=== PATIENT | male | born 1970 | race Caucasian/White ===

== ENCOUNTER 2017-06-29 15:47 | Inpatient (IN) | payer MEDICAID, OTHER ==
[~2017-06-29] VITALS: Ht 175.3 cm; Wt 84.0 kg
[~2017-06-29 15:47] MED LIST: IOHEXOL-350 100 ML BOTTLE ONE; SODIUM CHLORIDE 0.9% 10ML VIAL ONE
[2017-06-29] MEDS ORDERED: NITROGLYCERIN 0.4MG TABLET SL SL PRN (16:15)
[2017-06-29 16:36] LABS: BASOPHILS % 1.2 % (0.0-2.0); HEMOGLOBIN. 12.7 g/dL (14.0-18.0); LYMPHOCYTES % 47.2 % (20.0-50.0); MEAN CORPUSCULAR HEMOGLOBIN 33.1 pg (28.0-32.0); MEAN CORPUSCULAR VOLUME 96.1 fL (80.0-94.0); MEAN PLATELET VOLUME 7.6 fl (7.4-10.4); MONOCYTES % 4.9 % (2.0-8.0); NEUTROPHILS % 42.7 % (40.0-76.0); PLATELET 306 x1000/uL (130-400); RED BLOOD CELL COUNT 3.85 mill/uL (4.7-6.1)
[2017-06-29 16:41] LABS: PROTHROMBIN TIME 10.7 sec (9.4-11.6)
[2017-06-29 16:46] LABS: CARBON DIOXIDE 22 mEq/L (21-32); CHLORIDE 114 mEq/L (98-107)
[2017-06-29 16:48] LABS: TROPONIN I 0.11 ng/mL (0.00-0.04)
[2017-06-29] MEDS ORDERED: FUROSEMIDE 40MG/4ML VIAL IVP ONE (18:30)
[2017-06-29] MEDS ORDERED: ASPIRIN 325MG TABLET PO ONE (18:30)
[2017-06-29] MEDS ORDERED: ACETAMINOPHEN 650MG SUPP PR PRN (19:00)
[2017-06-29] MEDS ORDERED: FUROSEMIDE 40MG/4ML VIAL IV SCH (19:00)
[2017-06-29] MEDS ORDERED: ACETAMINOPHEN 650MG/20.3ML UDC GT PRN (19:00)
[2017-06-29] MEDS ORDERED: DOCUSATE SODIUM 100MG CAPSULE PO PRN (19:00)
[2017-06-29] MEDS ORDERED: HYDROCODONE/ACETAMINOPHEN 5/325MG TABLET PO PRN (19:00)
[2017-06-29] MEDS ORDERED: ACETAMINOPHEN 325MG TABLET PO PRN (19:00)
[2017-06-29] MEDS ORDERED: GUAIFENESIN 200MG/10ML SUGAR FREE UDC PO PRN (19:00)
[2017-06-29] MEDS ORDERED: DIPHENHYDRAMINE 50MG/ML VIAL IV PRN (19:00)
[2017-06-29] MEDS ORDERED: ONDANSETRON HCL 4MG/2ML VIAL IV PRN (19:00)
[2017-06-29] MEDS ORDERED: IPRATROPIUM/ALBUTEROL 0.5-3(2.5)MG/3ML NEB INH PRN (19:00)
[2017-06-29] MEDS ORDERED: CLONIDINE 0.1MG TABLET PO PRN (19:00)
[2017-06-29] MEDS ORDERED: MAGNESIUM/ALUMINUM HYDROXIDE/SIMETHICONE 30ML UDC PO PRN (19:00)
[2017-06-29] MEDS ORDERED: NA PHOS,M-B/NA PHOS,DI-BA ENEMA 118ML PR PRN (19:15)
[2017-06-29 20:00] VITALS: BP 115/76
[2017-06-29] MEDS ORDERED: ATOR40TA70 PO (21:09)
[2017-06-29] MEDS ORDERED: CARV3.1242 PO (21:10)
[2017-06-29] MEDS ORDERED: ENOXAPARIN 40MG/0.4ML SYR SUBCUT SCH (21:40)
[2017-06-29] MEDS ORDERED: SODIUM CHLORIDE 0.9% INJ 3ML FLUSH IVF SCH (22:00)
== END 2017-06-29 20:50 | disposition left against medical advice (07) | DRG 194 ==
LOC: ER 15:59 → 5WST 18:41 → EDBEDREQ 18:44 → ENRESERV 18:50
PROVIDERS: ADMIT Family Medicine; ATTEND Family Medicine
DX: I50.31 Acute diastolic (congestive) heart failure (principal); I10 Essential (primary) hypertension; R07.9 Chest pain, unspecified; I25.10 Atherosclerotic heart disease of native coronary artery without angina pectoris; E78.5 Hyperlipidemia, unspecified; Z53.21 Procedure and treatment not carried out due to patient leaving prior to being seen by health care provider; Z79.899 Other long term (current) drug therapy
CPT/HCPCS: 36415; 71010; 71275; 80053; 80061; 83036; 83880; 84443; 84484; 85025; 85610; 93005; 96374; 99291; A4216; J1940; Q9967

== ENCOUNTER 2017-08-21 13:16 | Emergency (ER) | payer MEDICAID, OTHER ==
[~2017-08-21] VITALS: Ht 177.8 cm; Wt 68.0 kg
[~2017-08-21 13:16] MED LIST changes: +ATOR40TA70 PO; +CARV3.1242 PO; -IOHEXOL-350 100 ML BOTTLE ONE; -SODIUM CHLORIDE 0.9% 10ML VIAL ONE
[2017-08-21 13:46] VITALS: BP 103/62
== END 2017-08-21 20:30 | disposition left against medical advice (07) ==
LOC: ER 13:57
DX: R06.02 Shortness of breath (principal); Z53.21 Procedure and treatment not carried out due to patient leaving prior to being seen by health care provider

== ENCOUNTER 2017-08-22 18:09 | Emergency (ER) | payer MEDICAID ==
[~2017-08-22] VITALS: Ht 172.7 cm; Wt 70.0 kg
[2017-08-22 19:31] LABS: BASOPHILS % 2.4 % (0.0-2.0); EOSINOPHILS % 8.2 % (0.0-5.0); HEMOGLOBIN. 13.7 g/dL (14.0-18.0); LYMPHOCYTES % 45.7 % (20.0-50.0); MEAN CORPUSCULAR VOLUME 96.4 fL (80.0-94.0); MEAN PLATELET VOLUME 7.9 fl (7.4-10.4); MONOCYTES % 7.2 % (2.0-8.0); NEUTROPHILS % 36.5 % (40.0-76.0); PLATELET 223 x1000/uL (130-400); RED BLOOD CELL COUNT 4.15 mill/uL (4.7-6.1); RED CELL DISTRIBUTION WIDTH 14.8 % (11.6-14.6)
[2017-08-22 19:38] LABS: CHLORIDE 107 mEq/L (98-107)
[2017-08-22 19:40] LABS: INR 1.1
[2017-08-22 19:44] LABS: AMMONIA 31 uMol/L (<32); CARBON DIOXIDE 24 mEq/L (21-32); ETHANOL BLOOD 278 mg/dL
[2017-08-22 19:47] LABS: CREATINE KINASE 202 IU/L (39-308); TROPONIN I < 0.02 ng/mL (0.00-0.04)
[2017-08-22] MEDS ORDERED: SODIUM CHLORIDE 0.9% 1,000 ML IV ONE (20:04)
[2017-08-22] MEDS ORDERED: SODIUM CHLORIDE 0.9% 1,000 ML IV NR (21:10)
[2017-08-22 23:22] LABS: CLARITY URINE CLEAR (CLEAR); COLOR URINE YELLOW (YELLOW); GLUCOSE URINE NEGATIVE (NEGATIVE); KETONES URINE NEGATIVE (NEGATIVE); LEUKOCYTE ESTERASE URINE TRACE (NEGATIVE); NITRITE URINE NEGATIVE (NEGATIVE); OCCULT BLOOD URINE NEGATIVE (NEGATIVE); PROTEIN URINE NEGATIVE (NEGATIVE); SPECIFIC GRAVITY URINE 1.016 (1.005-1.030)
[2017-08-22 23:34] LABS: *AMPHETAMINES SCREEN URINE NEGATIVE (NEGATIVE); *BARBITURATES SCREEN URINE NEGATIVE (NEGATIVE); *BENZODIAZEPINES SCREEN URINE NEGATIVE (NEGATIVE); *COCAINE SCREEN URINE NEGATIVE (NEGATIVE); CANNABINOID URINE SCREEN NEGATIVE (NEGATIVE); METHADONE URINE SCREEN NEGATIVE (NEGATIVE); OPIATES URINE SCREEN NEGATIVE (NEGATIVE); PHENCYCLIDINE URINE SCREEN NEGATIVE (NEGATIVE)
[2017-08-23] MEDS ORDERED: SODIUM CHLORIDE 0.9% 1,000 ML IV ONE (00:54)
[2017-08-23] MEDS ORDERED: LORAZEPAM 2MG/ML CPJ IV ONE (04:15)
[2017-08-23 17:19] VITALS: BP 130/78
== END 2017-08-23 18:22 | disposition home or self-care (01) ==
LOC: ER 18:49
DX: T45.522A Poisoning by antithrombotic drugs, intentional self-harm, initial encounter (principal); F10.129 Alcohol abuse with intoxication, unspecified; G93.49 Other encephalopathy; I10 Essential (primary) hypertension; F32.9 Major depressive disorder, single episode, unspecified; Y90.8 Blood alcohol level of 240 mg/100 ml or more; Y92.89 Other specified places as the place of occurrence of the external cause
CPT/HCPCS: 36415; 70450; 71010; 80053; 80305; 80307; 80329; 81001; 82140; 82550; 82962; 83605; 83880; 83930; 84484; 85025; 85610; 86850; 86900; 86901; 93005; 96361; 96374; 99285; G0482; J2060; J7030; Z7610

== ENCOUNTER 2017-11-01 04:18 | Emergency (ER) | payer MEDICAID ==
[~2017-11-01] VITALS: Ht 172.7 cm; Wt 84.0 kg
[2017-11-01 06:09] LABS: BASOPHILS % 2.4 % (0.0-2.0); EOSINOPHILS % 5.6 % (0.0-5.0); HEMATOCRIT. 40.3 % (42.0-52.0); HEMOGLOBIN. 13.4 g/dL (14.0-18.0); LYMPHOCYTES % 38.3 % (20.0-50.0); MEAN CORPUSCULAR HEMOGLOBIN 32.4 pg (28.0-32.0); MEAN CORPUSCULAR VOLUME 97.2 fL (80.0-94.0); MEAN PLATELET VOLUME 7.8 fl (7.4-10.4); MONOCYTES % 6.1 % (2.0-8.0); NEUTROPHILS % 47.6 % (40.0-76.0); PLATELET 352 x1000/uL (130-400); RED BLOOD CELL COUNT 4.14 mill/uL (4.7-6.1); RED CELL DISTRIBUTION WIDTH 15.2 % (11.6-14.6)
[2017-11-01 06:19] LABS: CARBON DIOXIDE 23 mEq/L (21-32); CHLORIDE 111 mEq/L (98-107); TROPONIN I < 0.02 ng/mL (0.00-0.04)
[2017-11-01 06:39] VITALS: BP 121/79
[2017-11-01 06:39] LABS: ETHANOL BLOOD 310 mg/dL
== END 2017-11-01 06:44 | disposition left against medical advice (07) ==
LOC: ER 04:18
DX: R07.89 Other chest pain (principal); R42 Dizziness and giddiness; R06.02 Shortness of breath; I10 Essential (primary) hypertension; F32.9 Major depressive disorder, single episode, unspecified; F10.20 Alcohol dependence, uncomplicated
CPT/HCPCS: 36415; 71010; 80053; 83880; 84484; 85025; 93005; 99285; G0482; Z7610

== ENCOUNTER 2018-03-26 22:59 | Emergency (ER) | payer MEDICAID ==
[~2018-03-26] VITALS: Ht 177.8 cm; Wt 75.0 kg
[2018-03-27 05:38] LABS: BASOPHILS % 1.3 % (0.0-2.0); EOSINOPHILS % 3.8 % (0.0-5.0); HEMATOCRIT. 36.9 % (42.0-52.0); HEMOGLOBIN. 12.8 g/dL (14.0-18.0); LYMPHOCYTES % 45.1 % (20.0-50.0); MEAN CORPUSCULAR HEMOGLOBIN 33.3 pg (28.0-32.0); MEAN PLATELET VOLUME 8.6 fl (7.4-10.4); MONOCYTES % 6.8 % (2.0-8.0); PLATELET 162 x1000/uL (130-400); RED BLOOD CELL COUNT 3.85 mill/uL (4.7-6.1); RED CELL DISTRIBUTION WIDTH 15.3 % (11.6-14.6)
[2018-03-27 05:44] LABS: CLARITY URINE CLEAR (CLEAR); COLOR URINE YELLOW (YELLOW); KETONES URINE NEGATIVE (NEGATIVE); LEUKOCYTE ESTERASE URINE NEGATIVE (NEGATIVE); NITRITE URINE NEGATIVE (NEGATIVE); OCCULT BLOOD URINE NEGATIVE (NEGATIVE); PROTEIN URINE 1+ (NEGATIVE); SPECIFIC GRAVITY URINE 1.018 (1.005-1.030)
[2018-03-27 05:44] LABS: CHLORIDE 112 mEq/L (98-107)
[2018-03-27 05:50] LABS: ETHANOL BLOOD 241 mg/dL
[2018-03-27 06:06] LABS: CANNABINOID URINE SCREEN NEGATIVE (NEGATIVE)
[2018-03-27 06:07] LABS: *AMPHETAMINES SCREEN URINE NEGATIVE (NEGATIVE); *BARBITURATES SCREEN URINE NEGATIVE (NEGATIVE); *BENZODIAZEPINES SCREEN URINE NEGATIVE (NEGATIVE); *COCAINE SCREEN URINE NEGATIVE (NEGATIVE); METHADONE URINE SCREEN NEGATIVE (NEGATIVE); OPIATES URINE SCREEN NEGATIVE (NEGATIVE); PHENCYCLIDINE URINE SCREEN NEGATIVE (NEGATIVE)
[2018-03-27 08:57] VITALS: BP 108/68
== END 2018-03-27 09:04 | disposition home or self-care (01) ==
LOC: ER 23:07
DX: F10.129 Alcohol abuse with intoxication, unspecified (principal); D64.9 Anemia, unspecified; E88.09 Other disorders of plasma-protein metabolism, not elsewhere classified; H11.003 Unspecified pterygium of eye, bilateral; I10 Essential (primary) hypertension; Y90.8 Blood alcohol level of 240 mg/100 ml or more
CPT/HCPCS: 36415; 80053; 80305; 81003; 85025; 99284; G0482; Z7610

== ENCOUNTER 2018-05-15 16:21 | Emergency (ER) | payer MEDICAID ==
[~2018-05-15] VITALS: Ht 172.7 cm; Wt 80.0 kg
[2018-05-15] MEDS ORDERED: MORPHINE SULFATE 4 MG/ML CPJ (NOT FOR IM USE) IV STA (17:54)
[2018-05-15] MEDS ORDERED: ONDANSETRON HCL 4MG/2ML VIAL IV STA (17:54)
[2018-05-15] MEDS ORDERED: KETOROLAC 30MG/ML VIAL IV STA (17:54)
[2018-05-15] MEDS ORDERED: METHYLPREDNISOLONE SOD SUCC 125 MG/2 ML VIAL IV STA (17:54)
[2018-05-15] MEDS ORDERED: IPRATROPIUM/ALBUTEROL 0.5-3(2.5)MG/3ML NEB HHN ONE (18:00)
[2018-05-15] MEDS ORDERED: LEVOFLOXACIN 750MG PREMIX 150 ML IV ONE (18:00)
[2018-05-15 18:43] LABS: BASOPHILS % 1.7 % (0.0-2.0); EOSINOPHILS % 3.1 % (0.0-5.0); HEMATOCRIT. 39.1 % (42.0-52.0); HEMOGLOBIN. 13.3 g/dL (14.0-18.0); LYMPHOCYTES % 32.8 % (20.0-50.0); MEAN CORPUSCULAR HEMOGLOBIN 32.9 pg (28.0-32.0); MEAN CORPUSCULAR VOLUME 97.1 fL (80.0-94.0); MEAN PLATELET VOLUME 7.7 fl (7.4-10.4); NEUTROPHILS % 58.4 % (40.0-76.0); PLATELET 334 x1000/uL (130-400); RED BLOOD CELL COUNT 4.03 mill/uL (4.7-6.1); RED CELL DISTRIBUTION WIDTH 15.4 % (11.6-14.6)
[2018-05-15 18:46] LABS: CHLORIDE 116 mEq/L (98-107)
[2018-05-15 18:53] LABS: INR 1.1; PARTIAL THROMBOPLASTIN TIME 25.9 sec (23.4-31.0); PROTHROMBIN TIME 11.2 sec (9.4-11.6)
[2018-05-15 18:55] LABS: CREATINE KINASE 322 IU/L (39-308)
[2018-05-15 19:11] LABS: ETHANOL BLOOD 322 mg/dL
[2018-05-15 19:44] LABS: METHADONE URINE SCREEN NEGATIVE (NEGATIVE); OPIATES URINE SCREEN NEGATIVE (NEGATIVE)
[2018-05-15 19:45] LABS: *AMPHETAMINES SCREEN URINE NEGATIVE (NEGATIVE); *BARBITURATES SCREEN URINE NEGATIVE (NEGATIVE); *BENZODIAZEPINES SCREEN URINE NEGATIVE (NEGATIVE); *COCAINE SCREEN URINE NEGATIVE (NEGATIVE); CANNABINOID URINE SCREEN NEGATIVE (NEGATIVE); PHENCYCLIDINE URINE SCREEN NEGATIVE (NEGATIVE)
[2018-05-15 20:52] VITALS: BP 124/75
== END 2018-05-15 20:56 | disposition home or self-care (01) ==
LOC: ER 16:21
DX: T51.0X1A Toxic effect of ethanol, accidental (unintentional), initial encounter (principal); R05 Cough; I51.7 Cardiomegaly; F17.200 Nicotine dependence, unspecified, uncomplicated; F43.10 Post-traumatic stress disorder, unspecified; F10.20 Alcohol dependence, uncomplicated; Y90.8 Blood alcohol level of 240 mg/100 ml or more; Y92.89 Other specified places as the place of occurrence of the external cause
CPT/HCPCS: 36415; 71045; 80053; 80305; 82550; 83605; 83690; 83880; 84443; 84484; 85025; 85610; 85730; 87040; 93005; 94640; 96365; 96366; 96375; 99285; G0482; J1885; J1956; J2270; J2405; J2930; J7620

== ENCOUNTER 2018-09-18 10:59 | Emergency (ER) | payer MEDICAID ==
[~2018-09-18] VITALS: Ht 175.3 cm; Wt 76.0 kg
[~2018-09-18 10:59] MED LIST changes: +ASPI-1159 PO; -CARV3.1242 PO
[2018-09-18] MEDS ORDERED: SODIUM CHLORIDE 0.9% 1,000 ML IV ONE (11:38)
[2018-09-18] MEDS ORDERED: ONDANSETRON HCL 4MG/2ML INJ IV STA (11:38)
[2018-09-18] MEDS ORDERED: KETOROLAC 30MG/ML VIAL IV STA (11:38)
[2018-09-18 12:22] LABS: BASOPHILS % 0.7 % (0.0-2.0); EOSINOPHILS % 1.1 % (0.0-5.0); HEMATOCRIT. 41.4 % (42.0-52.0); HEMOGLOBIN. 14.4 g/dL (14.0-18.0); LYMPHOCYTES % 17.3 % (20.0-50.0); MEAN CORPUSCULAR HEMOGLOBIN 32.4 pg (28.0-32.0); MEAN CORPUSCULAR VOLUME 93.3 fL (80.0-94.0); MEAN PLATELET VOLUME 7.8 fl (7.4-10.4); MONOCYTES % 4.2 % (2.0-8.0); NEUTROPHILS % 76.7 % (40.0-76.0); PLATELET 251 x1000/uL (130-400); RED BLOOD CELL COUNT 4.44 mill/uL (4.7-6.1); RED CELL DISTRIBUTION WIDTH 14.3 % (11.6-14.6)
[2018-09-18 12:28] LABS: PROTHROMBIN TIME 10.3 sec (9.1-11.1)
[2018-09-18 12:30] LABS: CHLORIDE 107 mEq/L (98-107)
[2018-09-18 12:37] LABS: ETHANOL BLOOD 300 mg/dL
[2018-09-18 14:30] VITALS: BP 111/77
== END 2018-09-18 16:52 | disposition home or self-care (01) ==
LOC: ER 10:59
DX: F10.229 Alcohol dependence with intoxication, unspecified (principal); R10.9 Unspecified abdominal pain; R06.00 Dyspnea, unspecified; F32.9 Major depressive disorder, single episode, unspecified; R79.89 Other specified abnormal findings of blood chemistry; R06.02 Shortness of breath; I10 Essential (primary) hypertension; Y90.8 Blood alcohol level of 240 mg/100 ml or more; Z79.82 Long term (current) use of aspirin
CPT/HCPCS: 36415; 71045; 80053; 83690; 83880; 84443; 84484; 85025; 85610; 93005; 96374; 96375; 99285; G0482; J1885; J2405; J7030

== ENCOUNTER 2019-03-27 18:08 | Emergency (ER) | payer MEDICAID ==
[~2019-03-27] VITALS: Ht 170.2 cm; Wt 75.0 kg
[2019-03-27] MEDS ORDERED: SODIUM CHLORIDE 0.9% 1,000 ML IV ONE (19:21)
[2019-03-27] MEDS ORDERED: KETOROLAC 30MG/ML VIAL IV STA (19:21)
[2019-03-27 19:40] LABS: BASOPHILS % 0.5 % (0.0-2.0); EOSINOPHILS % 5.4 % (0.0-5.0); HEMATOCRIT. 37.4 % (42.0-52.0); HEMOGLOBIN. 12.7 g/dL (14.0-18.0); LYMPHOCYTES % 30.6 % (20.0-50.0); MEAN CORPUSCULAR VOLUME 94.3 fL (80.0-94.0); MEAN PLATELET VOLUME 7.4 fl (7.4-10.4); MONOCYTES % 4.8 % (2.0-8.0); NEUTROPHILS % 58.7 % (40.0-76.0); PLATELET 157 x1000/uL (130-400); RED BLOOD CELL COUNT 3.97 mill/uL (4.7-6.1); RED CELL DISTRIBUTION WIDTH 15.4 % (11.6-14.6)
[2019-03-27 19:46] LABS: CHLORIDE 112 mEq/L (98-107)
[2019-03-27 19:51] LABS: ETHANOL BLOOD 292 mg/dL
[2019-03-27 20:53] LABS: CLARITY URINE CLEAR (CLEAR); COLOR URINE YELLOW (YELLOW); KETONES URINE TRACE (NEGATIVE); LEUKOCYTE ESTERASE URINE NEGATIVE (NEGATIVE); NITRITE URINE NEGATIVE (NEGATIVE); OCCULT BLOOD URINE NEGATIVE (NEGATIVE); PH URINE 5.5 (4.5-8.0); PROTEIN URINE TRACE (NEGATIVE); SPECIFIC GRAVITY URINE 1.021 (1.005-1.030)
[2019-03-27 21:05] LABS: *AMPHETAMINES SCREEN URINE NEGATIVE (NEGATIVE); *BARBITURATES SCREEN URINE NEGATIVE (NEGATIVE); *BENZODIAZEPINES SCREEN URINE PRESUMTIVE POSITIVE (NEGATIVE); *COCAINE SCREEN URINE NEGATIVE (NEGATIVE); METHADONE URINE SCREEN NEGATIVE (NEGATIVE)
[2019-03-27 21:06] LABS: CANNABINOID URINE SCREEN NEGATIVE (NEGATIVE); OPIATES URINE SCREEN NEGATIVE (NEGATIVE); PHENCYCLIDINE URINE SCREEN NEGATIVE (NEGATIVE)
[2019-03-27 22:14] VITALS: BP 113/67
== END 2019-03-27 22:38 | disposition home or self-care (01) ==
LOC: ER 18:08
DX: R07.89 Other chest pain (principal); F10.129 Alcohol abuse with intoxication, unspecified; Y90.8 Blood alcohol level of 240 mg/100 ml or more; Z59.0 Homelessness
CPT/HCPCS: 36415; 71045; 80053; 80305; 80320; 81003; 83690; 84484; 85025; 93005; 96374; 99284; J1885; J7030; Z7610; G0480

== ENCOUNTER 2019-04-11 17:35 | Emergency (ER) | payer MEDICAID ==
[~2019-04-11] VITALS: Ht 172.7 cm; Wt 80.0 kg
[2019-04-11 20:01] LABS: BASOPHILS % 2.4 % (0.0-2.0); EOSINOPHILS % 0.9 % (0.0-5.0); HEMATOCRIT. 36.2 % (42.0-52.0); HEMOGLOBIN. 12.6 g/dL (14.0-18.0); LYMPHOCYTES % 24.1 % (20.0-50.0); MEAN CORPUSCULAR VOLUME 95.2 fL (80.0-94.0); MEAN PLATELET VOLUME 7.6 fl (7.4-10.4); MONOCYTES % 5.8 % (2.0-8.0); NEUTROPHILS % 66.8 % (40.0-76.0); PLATELET 268 x1000/uL (130-400); RED CELL DISTRIBUTION WIDTH 16.2 % (11.6-14.6)
[2019-04-11 20:06] LABS: CHLORIDE 115 mEq/L (98-107)
[2019-04-11 20:40] LABS: ETHANOL BLOOD 324 mg/dL
[2019-04-11 21:15] LABS: CLARITY URINE CLEAR (CLEAR); COLOR URINE YELLOW (YELLOW); KETONES URINE NEGATIVE (NEGATIVE); LEUKOCYTE ESTERASE URINE NEGATIVE (NEGATIVE); NITRITE URINE NEGATIVE (NEGATIVE); OCCULT BLOOD URINE TRACE (NEGATIVE); PH URINE 5.5 (4.5-8.0); PROTEIN URINE 2+ (NEGATIVE); SPECIFIC GRAVITY URINE 1.019 (1.005-1.030); UROBILINOGEN URINE 0.2 E.U./dL (0.2-1.0)
[2019-04-11 21:31] LABS: *AMPHETAMINES SCREEN URINE NEGATIVE (NEGATIVE); *BENZODIAZEPINES SCREEN URINE PRESUMTIVE POSITIVE (NEGATIVE); *COCAINE SCREEN URINE NEGATIVE (NEGATIVE); METHADONE URINE SCREEN NEGATIVE (NEGATIVE)
[2019-04-11 21:32] LABS: *BARBITURATES SCREEN URINE NEGATIVE (NEGATIVE); CANNABINOID URINE SCREEN NEGATIVE (NEGATIVE); OPIATES URINE SCREEN NEGATIVE (NEGATIVE); PHENCYCLIDINE URINE SCREEN NEGATIVE (NEGATIVE)
[2019-04-12 06:50] VITALS: BP 111/68
[2019-04-12] MEDS ORDERED: ACETAMINOPHEN 325MG TABLET PO ONE (10:30)
== END 2019-04-12 11:30 | disposition home or self-care (01) ==
LOC: ER 17:35
DX: T51.0X1A Toxic effect of ethanol, accidental (unintentional), initial encounter (principal); G92 Toxic encephalopathy; F10.229 Alcohol dependence with intoxication, unspecified; Y90.8 Blood alcohol level of 240 mg/100 ml or more; F32.9 Major depressive disorder, single episode, unspecified; M79.642 Pain in left hand; M79.641 Pain in right hand; Y92.480 Sidewalk as the place of occurrence of the external cause; Z59.0 Homelessness
CPT/HCPCS: 36415; 70450; 71045; 73130; 80053; 80305; 80307; 80320; 80329; 81003; 82140; 82962; 83690; 85025; 93005; 99284; Z7610; G0480

== ENCOUNTER 2019-07-20 12:13 | Emergency (ER) | payer MEDICAID ==
[~2019-07-20] VITALS: Ht 177.8 cm; Wt 73.0 kg
[~2019-07-20 12:13] MED LIST changes: -ASPI-1159 PO; +ASPI-1393 PO
[2019-07-20] MEDS ORDERED: SODIUM CHLORIDE 0.9% 1,000 ML IV ONE (13:12)
[2019-07-20] MEDS ORDERED: FAMOTIDINE 20MG/2ML VIAL IV ONE (13:15)
[2019-07-20] MEDS ORDERED: ASPIRIN 325MG TABLET PO ONE (13:15)
[2019-07-20 14:14] LABS: BASOPHILS % 1.2 % (0.0-2.0); HEMATOCRIT. 34.2 % (42.0-52.0); HEMOGLOBIN. 11.7 g/dL (14.0-18.0); LYMPHOCYTES % 23.9 % (20.0-50.0); MEAN CORPUSCULAR HEMOGLOBIN 32.8 pg (28.0-32.0); MEAN CORPUSCULAR VOLUME 96.2 fL (80.0-94.0); MONOCYTES % 4.5 % (2.0-8.0); NEUTROPHILS % 67.4 % (40.0-76.0); PLATELET 174 x1000/uL (130-400); RED BLOOD CELL COUNT 3.55 mill/uL (4.7-6.1); RED CELL DISTRIBUTION WIDTH 15.6 % (11.6-14.6)
[2019-07-20 14:20] LABS: CHLORIDE 115 mEq/L (98-107)
[2019-07-20 14:23] LABS: D-DIMER 1.5 mg/L FEU (<0.50); INR 1.1
[2019-07-20 14:27] LABS: ETHANOL BLOOD 273 mg/dL
[2019-07-20 14:49] LABS: CLARITY URINE CLEAR (CLEAR); COLOR URINE YELLOW (YELLOW); KETONES URINE NEGATIVE (NEGATIVE); LEUKOCYTE ESTERASE URINE NEGATIVE (NEGATIVE); NITRITE URINE NEGATIVE (NEGATIVE); OCCULT BLOOD URINE NEGATIVE (NEGATIVE); PH URINE 5.5 (4.5-8.0); PROTEIN URINE 2+ (NEGATIVE); SPECIFIC GRAVITY URINE 1.017 (1.005-1.030)
[2019-07-20 17:30] VITALS: BP 130/72
[2019-07-20] MEDS ORDERED: DIPHENHYDRAMINE 50MG/ML VIAL IV PRN (18:30)
[2019-07-20] MEDS ORDERED: GUAIFENESIN 200MG/10ML SUGAR FREE UDC PO PRN (18:30)
[2019-07-20] MEDS ORDERED: HYDROCODONE/ACETAMINOPHEN 5/325MG TABLET PO PRN (18:30)
[2019-07-20] MEDS ORDERED: ACETAMINOPHEN 325MG TABLET PO PRN (18:30)
[2019-07-20] MEDS ORDERED: ONDANSETRON HCL 4MG/2ML INJ IV PRN (18:30)
[2019-07-20] MEDS ORDERED: LORAZEPAM 2MG/ML CPJ IV PRN (18:30)
[2019-07-20] MEDS ORDERED: FUROSEMIDE 40MG/4ML VIAL IV SCH (18:30)
[2019-07-20] MEDS ORDERED: IPRATROPIUM/ALBUTEROL 0.5-3(2.5)MG/3ML NEB HHN PRN (18:30)
[2019-07-20] MEDS ORDERED: ENOXAPARIN 40MG/0.4ML SYR SUBCUT SCH (18:30)
[2019-07-20] MEDS ORDERED: DOCUSATE SODIUM 100MG CAPSULE PO PRN (18:30)
[2019-07-20 18:38] LABS: PHOSPHORUS 2.8 mg/dL (2.5-4.9)
[2019-07-20] MEDS ORDERED: IOHEXOL-350 100 ML BOTTLE ONE (19:37)
[2019-07-20] MEDS ORDERED: CHLORDIAZEPOXIDE 25MG CAPSULE PO SCH (22:00)
== END 2019-07-20 19:03 | disposition left against medical advice (07) ==
LOC: ER 12:31 → EDBEDREQ 17:03 → EDBEDREQTM 17:03 → ER 19:03 → CANRESERV 19:38 → ENRESERV 19:38 → CANBEDREQ 21:29
DX: R07.89 Other chest pain (principal); I50.9 Heart failure, unspecified; I44.7 Left bundle-branch block, unspecified; F10.129 Alcohol abuse with intoxication, unspecified; R06.02 Shortness of breath; F31.9 Bipolar disorder, unspecified; E78.00 Pure hypercholesterolemia, unspecified; Z79.899 Other long term (current) drug therapy; Y90.8 Blood alcohol level of 240 mg/100 ml or more
CPT/HCPCS: 36415; 71045; 71275; 80053; 80320; 81003; 83605; 83690; 83735; 83880; 84100; 84484; 85025; 85379; 85610; 93005; 96361; 96374; 99284; J3490; J7030; Q9967; G0480

== ENCOUNTER 2019-09-14 12:58 | Emergency (ER) | payer MEDICAID ==
[~2019-09-14] VITALS: Ht 172.7 cm; Wt 78.0 kg
[2019-09-14 13:02] VITALS: BP 104/69
== END 2019-09-14 14:41 | disposition left against medical advice (07) ==
LOC: ER 12:58
DX: F41.9 Anxiety disorder, unspecified (principal); Z53.21 Procedure and treatment not carried out due to patient leaving prior to being seen by health care provider

== ENCOUNTER 2019-09-19 05:19 | Inpatient (IN) | payer MEDICAID ==
[~2019-09-19] VITALS: Ht 170.2 cm; Wt 80.7 kg
[2019-09-19] MEDS ORDERED: ONDANSETRON HCL 4MG/2ML INJ IV STA (06:01)
[2019-09-19] MEDS ORDERED: SODIUM CHLORIDE 0.9% 1,000 ML IV ONE (06:01)
[2019-09-19 06:20] LABS: CHLORIDE 110 mEq/L (98-107)
[2019-09-19 06:21] LABS: BASOPHILS % 2.2 % (0.0-2.0); EOSINOPHILS % 1.6 % (0.0-5.0); HEMATOCRIT. 39.5 % (42.0-52.0); HEMOGLOBIN. 13.3 g/dL (14.0-18.0); MEAN CORPUSCULAR HEMOGLOBIN 32.7 pg (28.0-32.0); MEAN CORPUSCULAR VOLUME 97.3 fL (80.0-94.0); MEAN PLATELET VOLUME 8.7 fl (7.4-10.4); MONOCYTES % 4.6 % (2.0-8.0); NEUTROPHILS % 69.6 % (40.0-76.0); PLATELET 177 x1000/uL (130-400); RED BLOOD CELL COUNT 4.06 mill/uL (4.7-6.1); RED CELL DISTRIBUTION WIDTH 15.6 % (11.6-14.6)
[2019-09-19 06:22] LABS: INR 1.3; PROTHROMBIN TIME 12.9 sec (9.6-11.0)
[2019-09-19] MEDS ORDERED: MORPHINE SULFATE 4 MG/ML CPJ (NOT FOR IM USE) IV ONE ×2 (06:45→08:45)
[2019-09-19 16:00] VITALS: BP 134/87
[2019-09-19 16:32] VITALS: BP 134/87
[2019-09-19] MEDS ORDERED: HYDROCODONE/ACETAMINOPHEN 5/325MG TABLET PO PRN (17:00)
[2019-09-19] MEDS ORDERED: IPRATROPIUM/ALBUTEROL 0.5-3(2.5)MG/3ML NEB HHN PRN (17:00)
[2019-09-19] MEDS ORDERED: ACETAMINOPHEN 325MG TABLET PO PRN (17:00)
[2019-09-19] MEDS ORDERED: CLONIDINE 0.1MG TABLET PO PRN (17:00)
[2019-09-19] MEDS ORDERED: LORAZEPAM 0.5MG TABLET PO PRN (17:00)
[2019-09-19] MEDS ORDERED: ONDANSETRON HCL 4MG/2ML INJ IV PRN (17:00)
[2019-09-19] MEDS ORDERED: DOCUSATE SODIUM 100MG CAPSULE PO PRN (17:00)
[2019-09-19] MEDS: MORPHINE SULFATE 2 MG/ML CPJ (NOT FOR IM USE) IV PRN (17:22)
[2019-09-19] MEDS: THIAMINE HCL 100MG TABLET PO SCH (17:23)
[2019-09-19] MEDS: MULTIVITAMINS,THER W-MINERALS TABLET PO SCH (17:23)
[2019-09-19] MEDS: SUCRALFATE 1G TABLET PO SCH ×2 (17:23→21:22)
[2019-09-19] MEDS: FOLIC ACID 1MG TABLET PO SCH (17:23)
[2019-09-19] MEDS: PANTOPRAZOLE SODIUM 40 MG/VIAL IV SCH (17:23)
[2019-09-19 20:00] VITALS: BP 132/81
[2019-09-19] MEDS: CHLORDIAZEPOXIDE 25MG CAPSULE PO SCH (21:23)
[2019-09-20] VITALS: BP 128/86
[2019-09-20] MEDS: MORPHINE SULFATE 2 MG/ML CPJ (NOT FOR IM USE) IV PRN (00:44)
[2019-09-20 04:00] VITALS: BP 117/73
[2019-09-20] MEDS: SUCRALFATE 1G TABLET PO SCH ×4 (06:16→21:09)
[2019-09-20] MEDS: CHLORDIAZEPOXIDE 25MG CAPSULE PO SCH ×3 (06:16→21:09)
[2019-09-20 07:36] LABS: EOSINOPHILS % 2.7 % (0.0-5.0); HEMATOCRIT. 38.1 % (42.0-52.0); HEMOGLOBIN. 12.7 g/dL (14.0-18.0); LYMPHOCYTES % 19.5 % (20.0-50.0); MEAN CORPUSCULAR HEMOGLOBIN 32.9 pg (28.0-32.0); MEAN CORPUSCULAR VOLUME 99.1 fL (80.0-94.0); MEAN PLATELET VOLUME 9.1 fl (7.4-10.4); MONOCYTES % 7.5 % (2.0-8.0); NEUTROPHILS % 69.3 % (40.0-76.0); PLATELET 147 x1000/uL (130-400); RED BLOOD CELL COUNT 3.84 mill/uL (4.7-6.1); RED CELL DISTRIBUTION WIDTH 15.3 % (11.6-14.6)
[2019-09-20 07:44] LABS: CHLORIDE 106 mEq/L (98-107)
[2019-09-20 07:51] LABS: PHOSPHORUS 4.3 mg/dL (2.5-4.9)
[2019-09-20 08:00] VITALS: BP 111/76
[2019-09-20] MEDS: PANTOPRAZOLE SODIUM 40 MG/VIAL IV SCH (08:49)
[2019-09-20] MEDS: THIAMINE HCL 100MG TABLET PO SCH (08:50)
[2019-09-20] MEDS: FOLIC ACID 1MG TABLET PO SCH (08:50)
[2019-09-20] MEDS: MULTIVITAMINS,THER W-MINERALS TABLET PO SCH (08:50)
[2019-09-20] MEDS ORDERED: FUROSEMIDE 40MG/4ML VIAL IVP NR (10:00)
[2019-09-20] MEDS ORDERED: MAGNESIUM 4 G PREMIX 100 ML IV SCH (10:00)
[2019-09-20 10:41] LABS: *AMPHETAMINES SCREEN URINE NEGATIVE (NEGATIVE); *BARBITURATES SCREEN URINE NEGATIVE (NEGATIVE); *BENZODIAZEPINES SCREEN URINE NEGATIVE (NEGATIVE); *COCAINE SCREEN URINE NEGATIVE (NEGATIVE)
[2019-09-20 10:42] LABS: METHADONE URINE SCREEN NEGATIVE (NEGATIVE)
[2019-09-20 10:43] LABS: CANNABINOID URINE SCREEN NEGATIVE (NEGATIVE); PHENCYCLIDINE URINE SCREEN NEGATIVE (NEGATIVE)
[2019-09-20 10:44] LABS: OPIATES URINE SCREEN PRESUMTIVE POSITIVE (NEGATIVE)
[2019-09-20 11:19] LABS: HEPATITIS B SURFACE ANTIGEN NEGATIVE
[2019-09-20] MEDS: CARVEDILOL 3.125 MG TABLET PO SCH ×2 (11:31→21:09)
[2019-09-20 11:48] LABS: HEPATITIS A AB IGM NEGATIVE (NEGATIVE)
[2019-09-20 12:00] VITALS: BP 110/70
[2019-09-20 13:13] LABS: TOTAL IRON BINDING CAPACITY 352 ug/dL (250-450)
[2019-09-20 13:16] LABS: FERRITIN 150 ng/mL (22-322)
[2019-09-20 15:51] LABS: VITAMIN B12 SERUM > 2000.0 pg/mL (211-911)
[2019-09-20 16:00] VITALS: BP 95/57
[2019-09-20] MEDS: FUROSEMIDE 40MG/4ML VIAL IVP SCH (16:45)
[2019-09-20] MEDS: MAGNESIUM OXIDE 400MG TABLET PO SCH (16:45)
[2019-09-20 20:00] VITALS: BP 105/61
[2019-09-21] VITALS: BP 99/59
[2019-09-21 04:00] VITALS: BP 94/53
[2019-09-21] MEDS: CHLORDIAZEPOXIDE 25MG CAPSULE PO SCH ×2 (05:27→13:29)
[2019-09-21 06:29] LABS: BASOPHILS % 0.7 % (0.0-2.0); EOSINOPHILS % 3.2 % (0.0-5.0); HEMOGLOBIN. 12.5 g/dL (14.0-18.0); LYMPHOCYTES % 15.7 % (20.0-50.0); MEAN CORPUSCULAR HEMOGLOBIN 32.8 pg (28.0-32.0); MEAN CORPUSCULAR VOLUME 97.1 fL (80.0-94.0); MONOCYTES % 6.3 % (2.0-8.0); NEUTROPHILS % 74.1 % (40.0-76.0); PLATELET 147 x1000/uL (130-400); RED BLOOD CELL COUNT 3.81 mill/uL (4.7-6.1); RED CELL DISTRIBUTION WIDTH 14.6 % (11.6-14.6)
[2019-09-21] MEDS: SUCRALFATE 1G TABLET PO SCH ×2 (06:31→11:35)
[2019-09-21 07:08] LABS: CHLORIDE 100 mEq/L (98-107)
[2019-09-21 08:00] VITALS: BP 95/56
[2019-09-21 08:07] LABS: HIV SCREEN 4G Non Reactive (Non Reactive)
[2019-09-21] MEDS: CARVEDILOL 3.125 MG TABLET PO SCH ×2 (09:00→10:38)
[2019-09-21] MEDS: FOLIC ACID 1MG TABLET PO SCH (09:04)
[2019-09-21] MEDS: THIAMINE HCL 100MG TABLET PO SCH (09:04)
[2019-09-21] MEDS: FUROSEMIDE 40MG/4ML VIAL IVP SCH (09:04)
[2019-09-21] MEDS: PANTOPRAZOLE SODIUM 40 MG/VIAL IV SCH (09:04)
[2019-09-21] MEDS: MAGNESIUM OXIDE 400MG TABLET PO SCH (09:04)
[2019-09-21] MEDS: MULTIVITAMINS,THER W-MINERALS TABLET PO SCH (09:04)
[2019-09-21] MEDS ORDERED: POTASSIUM CHLORIDE 20MEQ TABLET SR PO SCH (11:30)
== END 2019-09-21 14:21 | disposition left against medical advice (07) | DRG 241 ==
LOC: ER 05:34 → 8WST 14:20 → ENRESERV 14:26
PROVIDERS: ADMIT Internal Medicine; ATTEND Internal Medicine
DX: K29.20 Alcoholic gastritis without bleeding (principal); J96.00 Acute respiratory failure, unspecified whether with hypoxia or hypercapnia; I50.43 Acute on chronic combined systolic (congestive) and diastolic (congestive) heart failure; E43 Unspecified severe protein-calorie malnutrition; I27.20 Pulmonary hypertension, unspecified; E83.42 Hypomagnesemia; I08.1 Rheumatic disorders of both mitral and tricuspid valves; I42.0 Dilated cardiomyopathy; I11.0 Hypertensive heart disease with heart failure; K76.0 Fatty (change of) liver, not elsewhere classified; I25.10 Atherosclerotic heart disease of native coronary artery without angina pectoris; F10.20 Alcohol dependence, uncomplicated; E78.5 Hyperlipidemia, unspecified; M54.6 Pain in thoracic spine; D53.9 Nutritional anemia, unspecified; F32.9 Major depressive disorder, single episode, unspecified; F10.229 Alcohol dependence with intoxication, unspecified; I44.7 Left bundle-branch block, unspecified; E87.6 Hypokalemia; F41.9 Anxiety disorder, unspecified; K82.8 Other specified diseases of gallbladder; R74.0 Nonspecific elevation of levels of transaminase and lactic acid dehydrogenase [LDH]; R16.0 Hepatomegaly, not elsewhere classified; E80.6 Other disorders of bilirubin metabolism; R00.0 Tachycardia, unspecified; Z60.2 Problems related to living alone; M62.82 Rhabdomyolysis; Z53.21 Procedure and treatment not carried out due to patient leaving prior to being seen by health care provider; Z59.0 Homelessness; Z82.49 Family history of ischemic heart disease and other diseases of the circulatory system; Z79.899 Other long term (current) drug therapy; Z68.27 Body mass index [BMI] 27.0-27.9, adult; Z79.82 Long term (current) use of aspirin
CPT/HCPCS: 36415; 71045; 71250; 74176; 76700; 80048; 80076; 80305; 80320; 82248; 82607; 82728; 82746; 83036; 83540; 83550; 83735; 83880; 84100; 84484; 86705; 86709; 86803; 87340; 87389; 93005; 93306; 96361; 96374; 96375; 96376; 99285; C9113; J1940; J2270; J2405; J3475; J7030; J7040; G0480

== ENCOUNTER 2020-01-09 09:24 | Inpatient (IN) | payer MEDICAID ==
[~2020-01-09] VITALS: Ht 162.6 cm; Wt 68.9 kg
[~2020-01-09 09:24] MED LIST changes: -ASPI-1393 PO; +ASPI-1497 PO; +COR3 PO; +LOSA25TA3 PO
[2020-01-09] MEDS ORDERED: ONDANSETRON HCL 4MG/2ML INJ IV STA (10:03)
[2020-01-09] MEDS ORDERED: SODIUM CHLORIDE 0.9% 1,000 ML IV ONE (10:03)
[2020-01-09] MEDS ORDERED: LORAZEPAM 2MG/ML CPJ IV ONE (10:15)
[2020-01-09 11:04] LABS: BASOPHILS % 1.8 % (0.0-2.0); EOSINOPHILS % 2.1 % (0.0-5.0); HEMATOCRIT. 40.5 % (42.0-52.0); HEMOGLOBIN. 13.5 g/dL (14.0-18.0); LYMPHOCYTES % 15.5 % (20.0-50.0); MEAN CORPUSCULAR HEMOGLOBIN 31.3 pg (28.0-32.0); MEAN CORPUSCULAR VOLUME 93.7 fL (80.0-94.0); MEAN PLATELET VOLUME 8.7 fl (7.4-10.4); MONOCYTES % 6.6 % (2.0-8.0); PLATELET 196 x1000/uL (130-400); RED BLOOD CELL COUNT 4.33 mill/uL (4.7-6.1); RED CELL DISTRIBUTION WIDTH 20.1 % (11.6-14.6)
[2020-01-09 11:09] LABS: INR 1.1; PROTHROMBIN TIME 11.4 sec (9.6-11.0)
[2020-01-09 11:10] LABS: CHLORIDE 110 mEq/L (98-107)
[2020-01-09 11:32] LABS: CLARITY URINE CLEAR (CLEAR); COLOR URINE YELLOW (YELLOW); KETONES URINE NEGATIVE (NEGATIVE); LEUKOCYTE ESTERASE URINE NEGATIVE (NEGATIVE); NITRITE URINE NEGATIVE (NEGATIVE); OCCULT BLOOD URINE NEGATIVE (NEGATIVE); PROTEIN URINE 1+ (NEGATIVE); SPECIFIC GRAVITY URINE 1.019 (1.005-1.030); UROBILINOGEN URINE 0.2 E.U./dL (0.2-1.0)
[2020-01-09] MEDS ORDERED: KETOROLAC 30MG/ML VIAL IV STA (12:09)
[2020-01-09] MEDS ORDERED: MAGNESIUM/ALUMINUM HYDROXIDE/SIMETHICONE 30ML UDC PO STA (12:09)
[2020-01-09] MEDS ORDERED: CHLORDIAZEPOXIDE 25MG CAPSULE PO ONE (16:15)
[2020-01-09] MEDS ORDERED: ASPIRIN 81MG TABLET PO ONE (16:15)
[2020-01-09] MEDS ORDERED: FUROSEMIDE 40MG/4ML VIAL IV ONE (16:15)
[2020-01-09] MEDS ORDERED: ACETAMINOPHEN 325MG TABLET PO PRN (19:00)
[2020-01-09] MEDS ORDERED: ONDANSETRON HCL 4MG/2ML INJ IV PRN (19:00)
[2020-01-09] MEDS ORDERED: LOSARTAN POTASSIUM 50 MG TABLET PO NR (21:16)
[2020-01-09] MEDS ORDERED: CHLORDIAZEPOXIDE 25MG CAPSULE PO NR (21:18)
[2020-01-09] MEDS ORDERED: CARVEDILOL 6.25 MG TABLET PO NR (21:18)
[2020-01-10] VITALS (7 sets, daily range): BP systolic 100–119; BP diastolic 63–86
[2020-01-10] MEDS: CHLORDIAZEPOXIDE 25MG CAPSULE PO SCH ×3 (06:50→21:02)
[2020-01-10] MEDS: FUROSEMIDE 40MG/4ML VIAL IVP SCH ×2 (09:44→21:01)
[2020-01-10] MEDS: FOLIC ACID 1MG TABLET PO SCH (09:45)
[2020-01-10] MEDS: THIAMINE HCL 100MG TABLET PO SCH (09:45)
[2020-01-10] MEDS: CARVEDILOL 6.25 MG TABLET PO SCH ×2 (09:45→20:53)
[2020-01-10] MEDS: LOSARTAN POTASSIUM 50 MG TABLET PO SCH (09:45)
[2020-01-10 10:22] LABS: CANNABINOID URINE SCREEN NEGATIVE (NEGATIVE); PHENCYCLIDINE URINE SCREEN NEGATIVE (NEGATIVE)
[2020-01-10 10:23] LABS: *AMPHETAMINES SCREEN URINE NEGATIVE (NEGATIVE); *BARBITURATES SCREEN URINE NEGATIVE (NEGATIVE); *BENZODIAZEPINES SCREEN URINE PRESUMTIVE POSITIVE (NEGATIVE); *COCAINE SCREEN URINE NEGATIVE (NEGATIVE); METHADONE URINE SCREEN NEGATIVE (NEGATIVE); OPIATES URINE SCREEN NEGATIVE (NEGATIVE)
[2020-01-10 11:20] LABS: BASOPHILS % 1.3 % (0.0-2.0); EOSINOPHILS % 4.1 % (0.0-5.0); HEMATOCRIT. 40.3 % (42.0-52.0); HEMOGLOBIN. 13.6 g/dL (14.0-18.0); LYMPHOCYTES % 14.6 % (20.0-50.0); MEAN CORPUSCULAR HEMOGLOBIN 31.7 pg (28.0-32.0); MEAN CORPUSCULAR VOLUME 93.7 fL (80.0-94.0); MEAN PLATELET VOLUME 8.5 fl (7.4-10.4); MONOCYTES % 7.2 % (2.0-8.0); NEUTROPHILS % 72.8 % (40.0-76.0); PLATELET 178 x1000/uL (130-400)
[2020-01-10 11:58] LABS: CHLORIDE 109 mEq/L (98-107)
[2020-01-10] MEDS ORDERED: THIA100T72 PO (18:48)
[2020-01-10] MEDS ORDERED: FOLI-43 PO (18:48)
[2020-01-10] MEDS ORDERED: COR6 PO (18:48)
[2020-01-10] MEDS ORDERED: FURO-151 MT (18:48)
[2020-01-10] MEDS ORDERED: LOSA50TA3 PO (18:48)
[2020-01-10] MEDS ORDERED: OMEP20TA2 MT (18:48)
[2020-01-11] VITALS: BP 110/68
[2020-01-11 04:00] VITALS: BP 115/73
[2020-01-11] MEDS: CHLORDIAZEPOXIDE 25MG CAPSULE PO SCH (05:27)
[2020-01-11] MEDS ORDERED: OMEPRAZOLE 20MG CAPSULE EXTENDED RELEASE PO SCH (07:40)
[2020-01-11 07:56] LABS: EOSINOPHILS % 4.8 % (0.0-5.0); HEMATOCRIT. 42.2 % (42.0-52.0); HEMOGLOBIN. 14.2 g/dL (14.0-18.0); LYMPHOCYTES % 23.9 % (20.0-50.0); MEAN CORPUSCULAR HEMOGLOBIN 31.4 pg (28.0-32.0); MEAN CORPUSCULAR VOLUME 93.3 fL (80.0-94.0); MONOCYTES % 6.2 % (2.0-8.0); NEUTROPHILS % 64.1 % (40.0-76.0); PLATELET 183 x1000/uL (130-400); RED BLOOD CELL COUNT 4.53 mill/uL (4.7-6.1); RED CELL DISTRIBUTION WIDTH 19.3 % (11.6-14.6)
[2020-01-11 08:00] VITALS: BP 100/62
[2020-01-11] MEDS: CARVEDILOL 6.25 MG TABLET PO SCH (09:00)
[2020-01-11] MEDS: LOSARTAN POTASSIUM 50 MG TABLET PO SCH (09:00)
[2020-01-11] MEDS: FUROSEMIDE 40MG/4ML VIAL IVP SCH (09:46)
[2020-01-11] MEDS: THIAMINE HCL 100MG TABLET PO SCH (09:46)
[2020-01-11] MEDS: FOLIC ACID 1MG TABLET PO SCH (09:46)
[2020-01-11 11:19] VITALS: BP 100/62
[2020-01-11 13:01] LABS: CHLORIDE 102 mEq/L (98-107)
== END 2020-01-11 11:59 | disposition home or self-care (01) | DRG 775 ==
LOC: ER 09:24 → 7WST 17:22 → ENRESERV 01-10 02:31
PROVIDERS: ADMIT Internal Medicine; ATTEND Internal Medicine
DX: F10.229 Alcohol dependence with intoxication, unspecified (principal); J96.01 Acute respiratory failure with hypoxia; N17.0 Acute kidney failure with tubular necrosis; I50.23 Acute on chronic systolic (congestive) heart failure; I11.0 Hypertensive heart disease with heart failure; E87.8 Other disorders of electrolyte and fluid balance, not elsewhere classified; I27.20 Pulmonary hypertension, unspecified; I25.10 Atherosclerotic heart disease of native coronary artery without angina pectoris; E78.5 Hyperlipidemia, unspecified; F17.200 Nicotine dependence, unspecified, uncomplicated; I42.9 Cardiomyopathy, unspecified; Y90.1 Blood alcohol level of 20-39 mg/100 ml; R74.0 Nonspecific elevation of levels of transaminase and lactic acid dehydrogenase [LDH]; E78.00 Pure hypercholesterolemia, unspecified; Z59.0 Homelessness; Z79.899 Other long term (current) drug therapy; I25.2 Old myocardial infarction; Z95.0 Presence of cardiac pacemaker
CPT/HCPCS: 36415; 71045; 74176; 80048; 80053; 80305; 80320; 81003; 83735; 83880; 84484; 85025; 93005; 99285; J1885; J1940; J2060; J2405; J7030; G0480

== ENCOUNTER 2020-05-13 01:31 | Inpatient (IN) | payer MEDICAID ==
[~2020-05-13] VITALS: Ht 170.2 cm; Wt 79.4 kg
[~2020-05-13 01:31] MED LIST changes: +COR6 PO; +FOLI-43 PO; +FURO-151 MT; +LOSA50TA3 PO; +OMEP20TA2 MT; +THIA100T72 PO
[2020-05-13] MEDS ORDERED: CALCIUM GLUCONATE 100MG/ML 10ML VIAL IV ONE (02:15)
[2020-05-13 02:28] LABS: HEMOGLOBIN 12.6 g/dL (14.0-18.0); MEAN CORPUSCULAR HEMOGLOBIN 32.9 pg (28.0-32.0); MEAN CORPUSCULAR VOLUME 96.7 fL (80.0-94.0); PLATELET 166 x1000/uL (130-400); RED BLOOD CELL COUNT 3.82 mill/uL (4.7-6.1); RED CELL DISTRIBUTION WIDTH 19.1 % (11.6-14.6)
[2020-05-13] MEDS ORDERED: NITROGLYCERIN 0.4MG TABLET SL SL ONE (02:30)
[2020-05-13] MEDS ORDERED: FUROSEMIDE 100MG/10ML VIAL IVP ONE (02:30)
[2020-05-13 02:35] LABS: CHLORIDE 110 mEq/L (98-107)
[2020-05-13 02:39] LABS: ETHANOL BLOOD 284 mg/dL
[2020-05-13] MEDS ORDERED: ASPIRIN 325MG TABLET PO NR (04:30)
[2020-05-13] MEDS ORDERED: MAGNESIUM 1 G PREMIX 100 ML IV NR (04:30)
[2020-05-13 08:05] VITALS: BP 125/86
[2020-05-13] MEDS ORDERED: CARVEDILOL 3.125 MG TABLET PO SCH (09:00)
[2020-05-13] MEDS: ACETAMINOPHEN 325MG TABLET PO PRN (09:08)
[2020-05-13] MEDS ORDERED: LORAZEPAM 2MG/ML CPJ IV PRN (09:15)
[2020-05-13 09:36] VITALS: BP 119/86
[2020-05-13] MEDS: LEVOFLOXACIN 750MG PREMIX 150 ML IV SCH (10:57)
[2020-05-13] MEDS: OMEPRAZOLE 20MG CAPSULE EXTENDED RELEASE PO SCH (10:57)
[2020-05-13] MEDS: FOLIC ACID 1MG TABLET PO SCH (10:59)
[2020-05-13] MEDS: LOSARTAN POTASSIUM 50 MG TABLET PO SCH (10:59)
[2020-05-13] MEDS: THIAMINE HCL 100MG TABLET PO SCH (10:59)
[2020-05-13] MEDS: ENOXAPARIN 40MG/0.4ML SYR SUBCUT SCH (11:00)
[2020-05-13 11:16] VITALS: BP 125/89
[2020-05-13 15:02] LABS: *AMPHETAMINES SCREEN URINE NEGATIVE (NEGATIVE); *BARBITURATES SCREEN URINE NEGATIVE (NEGATIVE)
[2020-05-13 15:03] LABS: *BENZODIAZEPINES SCREEN URINE NEGATIVE (NEGATIVE); *COCAINE SCREEN URINE NEGATIVE (NEGATIVE); CANNABINOID URINE SCREEN NEGATIVE (NEGATIVE); METHADONE URINE SCREEN NEGATIVE (NEGATIVE); OPIATES URINE SCREEN NEGATIVE (NEGATIVE); PHENCYCLIDINE URINE SCREEN NEGATIVE (NEGATIVE)
[2020-05-13] MEDS: ONDANSETRON HCL 4MG/2ML INJ IV PRN ×2 (15:06→23:57)
[2020-05-13] MEDS: MORPHINE SULFATE 2 MG/ML CPJ (NOT FOR IM USE) IV PRN ×2 (15:06→20:32)
[2020-05-13 16:34] VITALS: BP 118/78
[2020-05-13] MEDS: FUROSEMIDE 40MG/4ML VIAL IVP SCH (17:02)
[2020-05-13 20:00] VITALS: BP 115/74
[2020-05-13] MEDS: CARVEDILOL 6.25 MG TABLET PO SCH (20:31)
[2020-05-13] MEDS: ATORVASTATIN CALCIUM 40MG TABLET PO SCH (20:32)
[2020-05-14 00:20] VITALS: BP 131/89
[2020-05-14] MEDS: MORPHINE SULFATE 2 MG/ML CPJ (NOT FOR IM USE) IV PRN ×3 (02:15→14:45)
[2020-05-14 04:00] VITALS: BP 123/87
[2020-05-14] MEDS: FUROSEMIDE 40MG/4ML VIAL IVP SCH ×2 (06:58→16:52)
[2020-05-14] MEDS: OMEPRAZOLE 20MG CAPSULE EXTENDED RELEASE PO SCH (06:58)
[2020-05-14 08:00] VITALS: BP 100/69
[2020-05-14] MEDS: CARVEDILOL 6.25 MG TABLET PO SCH ×2 (09:00→21:23)
[2020-05-14] MEDS: LOSARTAN POTASSIUM 50 MG TABLET PO SCH (09:39)
[2020-05-14] MEDS: ASPIRIN 81MG EC TABLET PO SCH (09:40)
[2020-05-14] MEDS: MULTIVITAMINS,THER W-MINERALS TABLET PO SCH (09:40)
[2020-05-14] MEDS: FOLIC ACID 1MG TABLET PO SCH (09:40)
[2020-05-14] MEDS: THIAMINE HCL 100MG TABLET PO SCH (09:40)
[2020-05-14] MEDS: ENOXAPARIN 40MG/0.4ML SYR SUBCUT SCH (09:43)
[2020-05-14] MEDS: LEVOFLOXACIN 750MG PREMIX 150 ML IV SCH (11:10)
[2020-05-14 11:23] LABS: CHLORIDE 103 mEq/L (98-107)
[2020-05-14 12:00] VITALS: BP 123/72
[2020-05-14] MEDS ORDERED: MAGNESIUM 4 G PREMIX 100 ML IV NR (13:00)
[2020-05-14 16:00] VITALS: BP 108/74
[2020-05-14 20:00] VITALS: BP 112/63
[2020-05-14] MEDS: ATORVASTATIN CALCIUM 40MG TABLET PO SCH (21:23)
[2020-05-15] VITALS: BP 100/61
[2020-05-15] MEDS: ACETAMINOPHEN 325MG TABLET PO PRN (00:33)
[2020-05-15 04:00] VITALS: BP 97/58
[2020-05-15 05:58] VITALS: BP 118/56
[2020-05-15] MEDS: FUROSEMIDE 40MG/4ML VIAL IVP SCH (06:14)
[2020-05-15 07:51] LABS: CHLORIDE 100 mEq/L (98-107)
[2020-05-15 08:00] VITALS: BP 99/62
[2020-05-15] MEDS: CARVEDILOL 6.25 MG TABLET PO SCH (09:00)
[2020-05-15] MEDS: LOSARTAN POTASSIUM 50 MG TABLET PO SCH (09:00)
[2020-05-15] MEDS ORDERED: FAMOTIDINE 20MG TABLET PO SCH (09:00)
[2020-05-15] MEDS: LEVOFLOXACIN 750MG PREMIX 150 ML IV SCH (10:23)
[2020-05-15] MEDS: ENOXAPARIN 40MG/0.4ML SYR SUBCUT SCH (10:23)
[2020-05-15] MEDS: MULTIVITAMINS,THER W-MINERALS TABLET PO SCH (10:23)
[2020-05-15] MEDS: FOLIC ACID 1MG TABLET PO SCH (10:23)
[2020-05-15] MEDS: THIAMINE HCL 100MG TABLET PO SCH (10:24)
[2020-05-15] MEDS: ASPIRIN 81MG EC TABLET PO SCH (10:24)
[2020-05-15] MEDS ORDERED: LIP40 MT (11:04)
[2020-05-15] MEDS ORDERED: ASPI-1497 PO (11:04)
[2020-05-15] MEDS ORDERED: COR6 PO (11:04)
[2020-05-15] MEDS ORDERED: LOSA25TA3 PO (11:04)
[2020-05-15 12:00] VITALS: BP 83/43
[2020-05-15] MEDS ORDERED: MAGNESIUM 2 G PREMIX 50 ML IV SCH (12:00)
[2020-05-15 16:15] VITALS: BP 99/62
== END 2020-05-15 16:20 | disposition home or self-care (01) | DRG 720 ==
LOC: ER 01:31 → 7WST 04:59 → ENRESERV 07:24 → 5WST 05-14 01:42
PROVIDERS: ADMIT Internal Medicine; ATTEND Internal Medicine
DX: A41.9 Sepsis, unspecified organism (principal); I13.0 Hypertensive heart and chronic kidney disease with heart failure and stage 1 through stage 4 chronic kidney disease, or unspecified chronic kidney disease; J96.00 Acute respiratory failure, unspecified whether with hypoxia or hypercapnia; E87.2 Acidosis; J18.9 Pneumonia, unspecified organism; E83.42 Hypomagnesemia; I27.20 Pulmonary hypertension, unspecified; E87.8 Other disorders of electrolyte and fluid balance, not elsewhere classified; I50.23 Acute on chronic systolic (congestive) heart failure; D64.9 Anemia, unspecified; E78.5 Hyperlipidemia, unspecified; F10.229 Alcohol dependence with intoxication, unspecified; I42.9 Cardiomyopathy, unspecified; I44.7 Left bundle-branch block, unspecified; J44.0 Chronic obstructive pulmonary disease with (acute) lower respiratory infection; N18.9 Chronic kidney disease, unspecified; Y90.8 Blood alcohol level of 240 mg/100 ml or more; Z59.0 Homelessness; Z87.891 Personal history of nicotine dependence; Z91.14 Patient's other noncompliance with medication regimen; I25.2 Old myocardial infarction; Z79.82 Long term (current) use of aspirin; Z79.899 Other long term (current) drug therapy; Z03.818 Encounter for observation for suspected exposure to other biological agents ruled out
CPT/HCPCS: 36415; 71045; 74018; 80048; 80053; 80061; 80305; 80320; 83735; 83880; 84484; 85027; 93005; 93306; 99291; J0610; J1650; J1940; J1956; J2270; J2405; J3475; G0480; U0003-CS

== ENCOUNTER 2020-08-07 21:14 | Inpatient (IN) | payer MEDICAID, OTHER ==
[~2020-08-07] VITALS: Ht 162.6 cm; Wt 67.6 kg
[~2020-08-07 21:14] MED LIST changes: -COR3 PO; +LIP40 MT; -LOSA50TA3 PO
[2020-08-07] MEDS ORDERED: ONDANSETRON HCL 4MG/2ML INJ IV ONE (22:15)
[2020-08-07 22:27] LABS: BASOPHILS % 0.3 % (0.0-2.0); EOSINOPHILS % 3.6 % (0.0-5.0); HEMATOCRIT. 37.4 % (42.0-52.0); HEMOGLOBIN. 12.6 g/dL (14.0-18.0); LYMPHOCYTES % 24.2 % (20.0-50.0); MEAN CORPUSCULAR HEMOGLOBIN 32.3 pg (28.0-32.0); MEAN CORPUSCULAR VOLUME 95.9 fL (80.0-94.0); MONOCYTES % 3.6 % (2.0-8.0); NEUTROPHILS % 68.3 % (40.0-76.0); PLATELET 294 x1000/uL (130-400)
[2020-08-07 22:33] LABS: CHLORIDE 111 mEq/L (98-107)
[2020-08-07 22:35] LABS: INR 1.1; PROTHROMBIN TIME 11.4 sec (9.6-11.0)
[2020-08-07 22:42] LABS: LDL CHOLESTEROL 129 mg/dL (5-100)
[2020-08-07 22:44] LABS: ETHANOL BLOOD 298 mg/dL
[2020-08-07] MEDS ORDERED: ASPIRIN 325MG TABLET PO ONE (22:45)
[2020-08-07] MEDS ORDERED: IOHEXOL-350 100 ML BOTTLE ONE (23:14)
[2020-08-08] VITALS (11 sets, daily range): BP systolic 98–127; BP diastolic 59–82
[2020-08-08] MEDS ORDERED: KETOROLAC 30MG/ML VIAL IV ONE (00:45)
[2020-08-08 03:42] LABS: CLARITY URINE CLEAR (CLEAR); COLOR URINE YELLOW (YELLOW); KETONES URINE NEGATIVE (NEGATIVE); LEUKOCYTE ESTERASE URINE NEGATIVE (NEGATIVE); NITRITE URINE NEGATIVE (NEGATIVE); OCCULT BLOOD URINE NEGATIVE (NEGATIVE); PH URINE 5.5 (4.5-8.0); PROTEIN URINE 2+ (NEGATIVE); SPECIFIC GRAVITY URINE >1.040 (1.005-1.030)
[2020-08-08 03:59] LABS: *AMPHETAMINES SCREEN URINE NEGATIVE (NEGATIVE); *BARBITURATES SCREEN URINE NEGATIVE (NEGATIVE)
[2020-08-08 04:00] LABS: *BENZODIAZEPINES SCREEN URINE NEGATIVE (NEGATIVE); *COCAINE SCREEN URINE NEGATIVE (NEGATIVE); CANNABINOID URINE SCREEN NEGATIVE (NEGATIVE); METHADONE URINE SCREEN NEGATIVE (NEGATIVE); OPIATES URINE SCREEN NEGATIVE (NEGATIVE); PHENCYCLIDINE URINE SCREEN NEGATIVE (NEGATIVE)
[2020-08-08 08:05] LABS: CHLORIDE 112 mEq/L (98-107); HEMOGLOBIN 11.8 g/dL (14.0-18.0); MEAN CORPUSCULAR HEMOGLOBIN 31.9 pg (28.0-32.0); MEAN CORPUSCULAR VOLUME 94.9 fL (80.0-94.0); PLATELET 264 x1000/uL (130-400); RED BLOOD CELL COUNT 3.69 mill/uL (4.7-6.1); RED CELL DISTRIBUTION WIDTH 16.1 % (11.6-14.6)
[2020-08-08 08:13] LABS: LDL CHOLESTEROL 124 mg/dL (5-100)
[2020-08-08 08:14] LABS: HDL CHOLESTEROL 40 mg/dL (40-59)
[2020-08-08] MEDS: ASPIRIN 325MG EC TABLET PO SCH (08:26)
[2020-08-08] MEDS: ISOSORBIDE MONONITRATE 30MG TABLET SR 24HR PO SCH (08:26)
[2020-08-08] MEDS: ENOXAPARIN 40MG/0.4ML SYR SUBCUT SCH (08:27)
[2020-08-08] MEDS ORDERED: LORAZEPAM 2MG/ML CPJ IV PRN (08:30)
[2020-08-08] MEDS: MULTIVITAMINS,THER W-MINERALS TABLET PO SCH (08:33)
[2020-08-08] MEDS: FOLIC ACID 1MG TABLET PO SCH (08:33)
[2020-08-08] MEDS: THIAMINE HCL 100MG TABLET PO SCH (08:33)
[2020-08-08] MEDS ORDERED: METOPROLOL TARTRATE 25MG TABLET PO SCH (09:00)
[2020-08-08] MEDS: HYDROCODONE/ACETAMINOPHEN 5/325MG TABLET PO PRN (10:11)
[2020-08-08] MEDS: FUROSEMIDE 40MG/4ML VIAL IVP SCH (12:10)
[2020-08-08] MEDS: CHLORDIAZEPOXIDE 25MG CAPSULE PO SCH ×2 (15:11→22:40)
[2020-08-08 16:59] LABS: CREATINE KINASE MB FRACTION 1.7 ng/mL (0.5-3.6)
[2020-08-08 17:37] LABS: CREATINE KINASE 82 IU/L (39-308)
[2020-08-08] MEDS: CARVEDILOL 6.25 MG TABLET PO SCH (20:39)
[2020-08-08] MEDS ORDERED: ATORVASTATIN CALCIUM 40MG TABLET PO SCH (21:00)
[2020-08-09] VITALS (9 sets, daily range): BP systolic 82–123; BP diastolic 40–71
[2020-08-09] MEDS: HYDROCODONE/ACETAMINOPHEN 5/325MG TABLET PO PRN (00:18)
[2020-08-09] MEDS: CHLORDIAZEPOXIDE 25MG CAPSULE PO SCH (06:26)
[2020-08-09] MEDS: ISOSORBIDE MONONITRATE 30MG TABLET SR 24HR PO SCH (08:06)
[2020-08-09] MEDS: CARVEDILOL 6.25 MG TABLET PO SCH (08:06)
[2020-08-09] MEDS: MULTIVITAMINS,THER W-MINERALS TABLET PO SCH (08:06)
[2020-08-09] MEDS: ENOXAPARIN 40MG/0.4ML SYR SUBCUT SCH (08:07)
[2020-08-09] MEDS: ASPIRIN 325MG EC TABLET PO SCH (08:07)
[2020-08-09] MEDS: FUROSEMIDE 40MG/4ML VIAL IVP SCH (08:07)
[2020-08-09] MEDS: THIAMINE HCL 100MG TABLET PO SCH (08:07)
[2020-08-09] MEDS: FOLIC ACID 1MG TABLET PO SCH (08:07)
[2020-08-09] MEDS ORDERED: LOSARTAN POTASSIUM 25 MG TABLET PO SCH (09:00)
[2020-08-09] MEDS ORDERED: APIXABAN 5 MG TABLET PO SCH (11:00)
[2020-08-09] MEDS ORDERED: FOLI-43 PO (11:18)
[2020-08-09] MEDS ORDERED: FURO-151 MT (11:18)
[2020-08-09] MEDS ORDERED: COR12 PO (11:18)
[2020-08-09] MEDS ORDERED: THIA100T72 PO (11:18)
[2020-08-09] MEDS ORDERED: LIP40 MT (11:18)
[2020-08-09] MEDS ORDERED: LOSA25TA3 PO (11:18)
[2020-08-09] MEDS ORDERED: APIX5TAB PO (11:18)
[2020-08-09] MEDS ORDERED: CARVEDILOL 12.5MG TABLET PO SCH (21:00)
== END 2020-08-09 14:15 | disposition home or self-care (01) | DRG 198 ==
LOC: ER 21:14 → 3WST 08-08 01:01 → EDBEDREQ 08-08 01:14 → EDBEDREQSVC 08-08 01:14 → EDBEDREQDT 08-08 01:14 → EDBEDREQTM 08-08 01:14 → ENRESERV 08-08 01:59
PROVIDERS: ADMIT Internal Medicine; ATTEND Internal Medicine
DX: I24.8 Other forms of acute ischemic heart disease (principal); G45.9 Transient cerebral ischemic attack, unspecified; I11.0 Hypertensive heart disease with heart failure; E87.8 Other disorders of electrolyte and fluid balance, not elsewhere classified; E78.5 Hyperlipidemia, unspecified; D64.9 Anemia, unspecified; I42.9 Cardiomyopathy, unspecified; I27.20 Pulmonary hypertension, unspecified; I25.10 Atherosclerotic heart disease of native coronary artery without angina pectoris; E78.00 Pure hypercholesterolemia, unspecified; I50.23 Acute on chronic systolic (congestive) heart failure; Y90.8 Blood alcohol level of 240 mg/100 ml or more; Z79.82 Long term (current) use of aspirin; Z79.899 Other long term (current) drug therapy; Z71.41 Alcohol abuse counseling and surveillance of alcoholic; F10.129 Alcohol abuse with intoxication, unspecified
CPT/HCPCS: 36415; 70496; 70551; 71045; 72141; 80048; 80053; 80061; 80305; 80320; 81003; 82550; 82553; 82962; 83721; 84484; 85025; 85027; 93005; 93306; 93880; 97162; 97166; 99291; J1650; J1940; J2405; Q9967; G0480

== ENCOUNTER 2021-01-30 17:44 | Emergency (ER) | payer MEDICAID ==
[~2021-01-30] VITALS: Ht 160 cm; Wt 75.0 kg
[~2021-01-30 17:44] MED LIST changes: +APIX5TAB PO; -ASPI-1497 PO; -ATOR40TA70 PO; +COR12 PO; -COR6 PO
[2021-01-30 18:52] LABS: BASOPHILS % 0.9 % (0.0-2.0); EOSINOPHILS % 1.6 % (0.0-5.0); HEMATOCRIT. 37.8 % (42.0-52.0); LYMPHOCYTES % 32.6 % (20.0-50.0); MEAN CORPUSCULAR HEMOGLOBIN 31.8 pg (28.0-32.0); MEAN CORPUSCULAR VOLUME 92.7 fL (80.0-94.0); MEAN PLATELET VOLUME 7.9 fl (7.4-10.4); MONOCYTES % 6.4 % (2.0-8.0); NEUTROPHILS % 58.5 % (40.0-76.0); PLATELET 184 x1000/uL (130-400); RED BLOOD CELL COUNT 4.08 mill/uL (4.7-6.1); RED CELL DISTRIBUTION WIDTH 14.3 % (11.6-14.6)
[2021-01-30 18:55] LABS: CHLORIDE 111 mEq/L (98-107)
[2021-01-30 19:10] LABS: ETHANOL BLOOD 313 mg/dL
[2021-01-30] MEDS: LORAZEPAM 1MG TABLET PO ONE (19:10)
[2021-01-30] MEDS: IBUPROFEN 600MG TABLET PO ONE (19:10)
[2021-01-30] MEDS: ASPIRIN 81MG TABLET PO ONE (20:11)
[2021-01-30] MEDS ORDERED: FOLIC ACID 1 MG, THIAMINE HCL 100 MG, MVI, ADULT NO.1 10 ML in DEXTROSE 5% WATER 1,000 ML IV ONE (20:30)
[2021-01-30] MEDS: CHLORDIAZEPOXIDE 25MG CAPSULE PO ONE (21:48)
[2021-01-30] MEDS: FOLIC ACID 1 MG, THIAMINE HCL 100 MG in DEXTROSE 5% WATER 1,000 ML IV ONE (21:56)
[2021-01-30 22:55] VITALS: BP 119/72
== END 2021-01-30 23:20 | disposition short-term general hospital (02) ==
LOC: ER 17:44 → CANBEDREQ 20:55 → ER 23:20
DX: I20.0 Unstable angina (principal); I21.3 ST elevation (STEMI) myocardial infarction of unspecified site; I11.0 Hypertensive heart disease with heart failure; I50.9 Heart failure, unspecified
CPT/HCPCS: 36415; 71045; 73130; 80053; 80320; 84484; 85025; 93005; 99285; J3411; J3490; J7070; Z7610; G0480

== ENCOUNTER 2021-02-06 18:48 | Emergency (ER) | payer MEDICAID ==
[~2021-02-06] VITALS: Ht 177.8 cm; Wt 80.0 kg
[2021-02-06 20:10] LABS: EOSINOPHILS % 1.8 % (0.0-5.0); HEMATOCRIT. 35.6 % (42.0-52.0); MEAN CORPUSCULAR HEMOGLOBIN 31.3 pg (28.0-32.0); MEAN CORPUSCULAR VOLUME 93.2 fL (80.0-94.0); MEAN PLATELET VOLUME 7.6 fl (7.4-10.4); MONOCYTES % 6.7 % (2.0-8.0); NEUTROPHILS % 59.5 % (40.0-76.0); PLATELET 168 x1000/uL (130-400); RED BLOOD CELL COUNT 3.82 mill/uL (4.7-6.1); RED CELL DISTRIBUTION WIDTH 14.9 % (11.6-14.6)
[2021-02-06] MEDS ORDERED: ASPIRIN 81MG TABLET PO ONE (20:15)
[2021-02-06] MEDS ORDERED: NITROGLYCERIN 0.4MG TABLET SL SL PRN (20:15)
[2021-02-06 20:16] LABS: CHLORIDE 114 mEq/L (98-107)
[2021-02-06 20:22] LABS: D-DIMER 0.7 mg/L FEU (<0.50); PARTIAL THROMBOPLASTIN TIME 28.2 sec (23.4-31.0); PROTHROMBIN TIME 10.9 sec (9.6-11.0)
[2021-02-06 20:50] LABS: *AMPHETAMINES SCREEN URINE NEGATIVE (NEGATIVE); *BARBITURATES SCREEN URINE NEGATIVE (NEGATIVE)
[2021-02-06 20:51] LABS: *BENZODIAZEPINES SCREEN URINE PRESUMTIVE POSITIVE (NEGATIVE); *COCAINE SCREEN URINE NEGATIVE (NEGATIVE); CANNABINOID URINE SCREEN NEGATIVE (NEGATIVE); METHADONE URINE SCREEN NEGATIVE (NEGATIVE); OPIATES URINE SCREEN NEGATIVE (NEGATIVE); PHENCYCLIDINE URINE SCREEN NEGATIVE (NEGATIVE)
[2021-02-06 22:14] VITALS: BP 119/78
== END 2021-02-07 00:35 | disposition home or self-care (01) ==
LOC: ER 18:48 → EDBEDREQDT 02-07 00:12 → EDBEDREQTM 02-07 00:12 → EDBEDREQ 02-07 00:12 → ER 02-07 00:35 → ENRESERV 02-07 02:23 → CANRESERV 02-07 02:23 → CANBEDREQ 02-07 08:10
DX: R07.2 Precordial pain (principal); I10 Essential (primary) hypertension; F10.129 Alcohol abuse with intoxication, unspecified; Y90.8 Blood alcohol level of 240 mg/100 ml or more; F41.9 Anxiety disorder, unspecified; I25.2 Old myocardial infarction
CPT/HCPCS: 36415; 71045; 80053; 80305; 80320; 83880; 84484; 85025; 85379; 85610; 85730; 93005; 99285; Z7610; G0480

== ENCOUNTER 2021-02-27 11:09 | Emergency (ER) | payer MEDICAID ==
[~2021-02-27] VITALS: Ht 175.3 cm; Wt 80.0 kg
[2021-02-27 12:28] LABS: EOSINOPHILS % 5.3 % (0.0-5.0); HEMATOCRIT. 38.1 % (42.0-52.0); HEMOGLOBIN. 13.1 g/dL (14.0-18.0); LYMPHOCYTES % 34.4 % (20.0-50.0); MEAN CORPUSCULAR HEMOGLOBIN 32.8 pg (28.0-32.0); MEAN PLATELET VOLUME 8.7 fl (7.4-10.4); MONOCYTES % 10.2 % (2.0-8.0); NEUTROPHILS % 47.1 % (40.0-76.0); PLATELET 242 x1000/uL (130-400); RED BLOOD CELL COUNT 4.01 mill/uL (4.7-6.1); RED CELL DISTRIBUTION WIDTH 15.6 % (11.6-14.6)
[2021-02-27 12:31] LABS: CHLORIDE 105 mEq/L (98-107)
[2021-02-27] MEDS ORDERED: FUROSEMIDE 20MG/2ML VIAL IVP NR (13:45)
[2021-02-27 14:58] VITALS: BP 114/56
== END 2021-02-27 16:14 | disposition left against medical advice (07) ==
LOC: ER 11:09 → EDBEDREQ 13:47 → EDBEDREQTM 13:47 → ER 16:14 → CANBEDREQ 16:41
DX: I11.0 Hypertensive heart disease with heart failure (principal); I50.9 Heart failure, unspecified; F10.129 Alcohol abuse with intoxication, unspecified; I25.2 Old myocardial infarction; Z79.899 Other long term (current) drug therapy; Y90.8 Blood alcohol level of 240 mg/100 ml or more
CPT/HCPCS: 36415; 71045; 80053; 80320; 83880; 84484; 85025; 93005; 96374; 99285; J1940; G0480

== ENCOUNTER 2021-03-28 10:51 | Inpatient (IN) | payer MEDICAID ==
[~2021-03-28] VITALS: Ht 167.6 cm; Wt 78.0 kg
[2021-03-28] MEDS ORDERED: ASPIRIN 81MG TABLET PO ONE (11:30)
[2021-03-28] MEDS ORDERED: NITROGLYCERIN 0.4MG TABLET SL SL PRN (11:30)
[2021-03-28] MEDS ORDERED: ASPIRIN 325MG TABLET PO NR (11:45)
[2021-03-28 12:00] LABS: BASOPHILS % 0.8 % (0.0-2.0); EOSINOPHILS % 1.8 % (0.0-5.0); HEMATOCRIT. 38.7 % (42.0-52.0); HEMOGLOBIN. 13.2 g/dL (14.0-18.0); LYMPHOCYTES % 20.4 % (20.0-50.0); MEAN CORPUSCULAR HEMOGLOBIN 32.6 pg (28.0-32.0); MEAN CORPUSCULAR VOLUME 95.4 fL (80.0-94.0); MEAN PLATELET VOLUME 8.2 fl (7.4-10.4); MONOCYTES % 3.1 % (2.0-8.0); NEUTROPHILS % 73.9 % (40.0-76.0); PLATELET 206 x1000/uL (130-400); RED BLOOD CELL COUNT 4.06 mill/uL (4.7-6.1); RED CELL DISTRIBUTION WIDTH 16.6 % (11.6-14.6)
[2021-03-28 12:10] LABS: CHLORIDE 110 mEq/L (98-107)
[2021-03-28] MEDS ORDERED: MORPHINE SULFATE 4 MG/ML CPJ (NOT FOR IM USE) IV NR (13:28)
[2021-03-28] MEDS ORDERED: ONDANSETRON HCL 4MG/2ML INJ IV NR (13:28)
[2021-03-28] MEDS ORDERED: AZITHROMYCIN 500 MG in DEXT 5% WATER 250 ML IV ONE (14:00)
[2021-03-28] MEDS ORDERED: FUROSEMIDE 40MG/4ML VIAL IVP SCH (14:00)
[2021-03-28] MEDS ORDERED: ACETAMINOPHEN 500MG TABLET PO ONE (14:00)
[2021-03-28] MEDS ORDERED: CEFTRIAXONE 1 G PREMIX 50 ML IV ONE (14:00)
[2021-03-28] MEDS: HYDROCODONE/ACETAMINOPHEN 10/325MG TABLET PO PRN ×2 (18:38→23:08)
[2021-03-28] MEDS: ENOXAPARIN 40MG/0.4ML SYR SUBCUT SCH (23:07)
[2021-03-28] MEDS: ATORVASTATIN CALCIUM 20MG TABLET PO SCH (23:07)
[2021-03-29] VITALS (11 sets, daily range): BP systolic 98–140; BP diastolic 56–81
[2021-03-29] MEDS ORDERED: ATOR40TA70 PO (00:01)
[2021-03-29] MEDS ORDERED: LISI-186 PO (00:02)
[2021-03-29] MEDS ORDERED: LISI2.5T47 PO (00:06)
[2021-03-29] MEDS ORDERED: FERR325T23 PO (00:06)
[2021-03-29] MEDS ORDERED: FAMO20TA8 PO (00:06)
[2021-03-29] MEDS ORDERED: FURO40TA5 PO (00:07)
[2021-03-29] MEDS ORDERED: CARV3.1242 PO (00:07)
[2021-03-29] MEDS: ONDANSETRON HCL 4MG/2ML INJ IV PRN ×3 (00:36→14:07)
[2021-03-29 02:15] LABS: *AMPHETAMINES SCREEN URINE NEGATIVE (NEGATIVE); *BARBITURATES SCREEN URINE NEGATIVE (NEGATIVE)
[2021-03-29 02:16] LABS: *BENZODIAZEPINES SCREEN URINE NEGATIVE (NEGATIVE); *COCAINE SCREEN URINE NEGATIVE (NEGATIVE); CANNABINOID URINE SCREEN NEGATIVE (NEGATIVE); METHADONE URINE SCREEN NEGATIVE (NEGATIVE); OPIATES URINE SCREEN PRESUMTIVE POSITIVE (NEGATIVE); PHENCYCLIDINE URINE SCREEN NEGATIVE (NEGATIVE)
[2021-03-29] MEDS: MORPHINE SULFATE 2 MG/ML CPJ (NOT FOR IM USE) IV PRN ×3 (02:52→19:41)
[2021-03-29 06:40] LABS: CHLORIDE 104 mEq/L (98-107); HEMATOCRIT. 39.9 % (42.0-52.0); HEMOGLOBIN. 13.5 g/dL (14.0-18.0); MEAN CORPUSCULAR HEMOGLOBIN 32.3 pg (28.0-32.0); MEAN CORPUSCULAR VOLUME 95.9 fL (80.0-94.0); MEAN PLATELET VOLUME 8.9 fl (7.4-10.4); PLATELET 158 x1000/uL (130-400); RED BLOOD CELL COUNT 4.16 mill/uL (4.7-6.1); RED CELL DISTRIBUTION WIDTH 16.7 % (11.6-14.6)
[2021-03-29] MEDS ORDERED: FUROSEMIDE 40MG/4ML VIAL IVP SCH (07:15)
[2021-03-29] MEDS ORDERED: DILTIAZEM HCL 5MG/ML 5ML VIAL IV NR (07:42)
[2021-03-29] MEDS: ASPIRIN 81MG TABLET PO SCH (08:01)
[2021-03-29] MEDS: CARVEDILOL 6.25 MG TABLET PO SCH ×2 (08:47→21:36)
[2021-03-29] MEDS ORDERED: LORAZEPAM 2MG/ML CPJ IV PRN (11:15)
[2021-03-29] MEDS ORDERED: DIGOXIN 500MCG/2ML AMP IV SCH (11:30)
[2021-03-29] MEDS: SPIRONOLACTONE 25MG TABLET PO SCH (12:24)
[2021-03-29] MEDS: CHLORDIAZEPOXIDE 25MG CAPSULE PO SCH ×2 (14:07→21:35)
[2021-03-29 14:31] LABS: PLATELET ESTIMATE NORMAL
[2021-03-29] MEDS: FUROSEMIDE 40MG/4ML VIAL IVP SCH (19:04)
[2021-03-29] MEDS: DIGOXIN 250MCG TABLET PO SCH (19:04)
[2021-03-29] MEDS: ATORVASTATIN CALCIUM 20MG TABLET PO SCH (21:35)
[2021-03-29] MEDS: ENOXAPARIN 40MG/0.4ML SYR SUBCUT SCH (21:36)
[2021-03-30] VITALS (12 sets, daily range): BP systolic 91–130; BP diastolic 36–72
[2021-03-30] MEDS: CHLORDIAZEPOXIDE 25MG CAPSULE PO SCH ×3 (05:18→21:34)
[2021-03-30] MEDS: MORPHINE SULFATE 2 MG/ML CPJ (NOT FOR IM USE) IV PRN (05:19)
[2021-03-30 07:04] LABS: CHLORIDE 98 mEq/L (98-107)
[2021-03-30] MEDS: FUROSEMIDE 40MG/4ML VIAL IVP SCH ×2 (08:20→18:07)
[2021-03-30] MEDS: ASPIRIN 81MG TABLET PO SCH (08:20)
[2021-03-30] MEDS: SPIRONOLACTONE 25MG TABLET PO SCH (08:20)
[2021-03-30] MEDS: THIAMINE HCL 100MG TABLET PO SCH (08:20)
[2021-03-30] MEDS: MULTIVITAMINS,THER W-MINERALS TABLET PO SCH (08:20)
[2021-03-30] MEDS: FOLIC ACID 1MG TABLET PO SCH (08:20)
[2021-03-30] MEDS: CARVEDILOL 6.25 MG TABLET PO SCH ×2 (09:00→21:34)
[2021-03-30] MEDS ORDERED: IPRATROPIUM BROMIDE (0.02%) 0.5MG/2.5ML NEB HHN PRN (13:15)
[2021-03-30] MEDS ORDERED: CEFTRIAXONE 1 G PREMIX 50 ML IV SCH (18:00)
[2021-03-30] MEDS: DIGOXIN 250MCG TABLET PO SCH (18:07)
[2021-03-30] MEDS ORDERED: CEFTRIAXONE 1,000 MG in DEXTROSE 5% WATER 50 ML IV SCH (20:00)
[2021-03-30] MEDS: ENOXAPARIN 40MG/0.4ML SYR SUBCUT SCH (21:33)
[2021-03-30] MEDS: ATORVASTATIN CALCIUM 20MG TABLET PO SCH (21:34)
[2021-03-31] VITALS: BP 92/54
[2021-03-31 02:00] VITALS: BP 120/61
[2021-03-31 04:00] VITALS: BP 100/69
[2021-03-31] MEDS: CHLORDIAZEPOXIDE 25MG CAPSULE PO SCH (05:23)
[2021-03-31 05:47] LABS: CHLORIDE 99 mEq/L (98-107)
[2021-03-31 06:00] VITALS: BP 129/44
[2021-03-31 06:10] LABS: BASOPHILS % 0.9 % (0.0-2.0); EOSINOPHILS % 4.2 % (0.0-5.0); HEMATOCRIT. 43.1 % (42.0-52.0); HEMOGLOBIN. 14.4 g/dL (14.0-18.0); LYMPHOCYTES % 33.4 % (20.0-50.0); MEAN CORPUSCULAR HEMOGLOBIN 32.3 pg (28.0-32.0); MEAN CORPUSCULAR VOLUME 96.4 fL (80.0-94.0); MEAN PLATELET VOLUME 9.7 fl (7.4-10.4); MONOCYTES % 12.5 % (2.0-8.0); PLATELET 174 x1000/uL (130-400); RED BLOOD CELL COUNT 4.47 mill/uL (4.7-6.1); RED CELL DISTRIBUTION WIDTH 16.4 % (11.6-14.6)
[2021-03-31] MEDS ORDERED: SPIR25TA PO (07:48)
[2021-03-31] MEDS ORDERED: COR6 PO (07:48)
[2021-03-31] MEDS ORDERED: LOSA25TA3 PO (07:48)
[2021-03-31] MEDS ORDERED: POTA20TA82 MT (07:48)
[2021-03-31] MEDS ORDERED: THIA100T72 PO (07:48)
[2021-03-31] MEDS ORDERED: FURO-151 MT (07:48)
[2021-03-31 08:01] VITALS: BP 134/56
[2021-03-31] MEDS: ASPIRIN 81MG TABLET PO SCH (08:22)
[2021-03-31] MEDS: CARVEDILOL 6.25 MG TABLET PO SCH (08:22)
[2021-03-31] MEDS: MULTIVITAMINS,THER W-MINERALS TABLET PO SCH (08:22)
[2021-03-31] MEDS: SPIRONOLACTONE 25MG TABLET PO SCH (08:22)
[2021-03-31] MEDS: FOLIC ACID 1MG TABLET PO SCH (08:22)
[2021-03-31] MEDS: FUROSEMIDE 40MG/4ML VIAL IVP SCH (08:22)
[2021-03-31] MEDS: THIAMINE HCL 100MG TABLET PO SCH (08:22)
[2021-03-31 09:23] VITALS: BP 104/82
[2021-03-31] MEDS ORDERED: FUROSEMIDE 40MG/4ML VIAL IVP SCH (17:15)
[2021-03-31] MEDS ORDERED: CARVEDILOL 6.25 MG TABLET PO SCH (21:00)
== END 2021-03-31 10:55 | disposition home or self-care (01) | DRG 720 ==
LOC: ER 10:51 → EDBEDREQ 14:01 → EDBEDREQTM 14:51 → EDBEDREQSVC 14:51 → 7WST 15:36 → EDBEDREQSVC 15:37 → ENRESERV 22:01 → 5EST 03-29 05:30
PROVIDERS: ADMIT Internal Medicine; ATTEND Internal Medicine
DX: A41.9 Sepsis, unspecified organism (principal); J96.01 Acute respiratory failure with hypoxia; I50.23 Acute on chronic systolic (congestive) heart failure; E87.8 Other disorders of electrolyte and fluid balance, not elsewhere classified; I27.20 Pulmonary hypertension, unspecified; J18.9 Pneumonia, unspecified organism; I11.0 Hypertensive heart disease with heart failure; E78.5 Hyperlipidemia, unspecified; I42.9 Cardiomyopathy, unspecified; I47.1 Supraventricular tachycardia; J44.0 Chronic obstructive pulmonary disease with (acute) lower respiratory infection; I25.10 Atherosclerotic heart disease of native coronary artery without angina pectoris; I08.1 Rheumatic disorders of both mitral and tricuspid valves; I48.91 Unspecified atrial fibrillation; Z20.822 Contact with and (suspected) exposure to COVID-19; Z82.49 Family history of ischemic heart disease and other diseases of the circulatory system; I25.2 Old myocardial infarction; Z95.5 Presence of coronary angioplasty implant and graft; F10.11 Alcohol abuse, in remission
CPT/HCPCS: 36415; 71045; 80048; 80053; 80305; 83605; 83735; 83880; 84484; 85025; 93005; 93306; 99291; J0456; J0696; J1160; J1650; J1940; J2270; J2405; J3490; J7060; U0003; U0005

== ENCOUNTER 2021-04-03 21:47 | Inpatient (IN) | payer MEDICAID ==
[~2021-04-03] VITALS: Ht 167.6 cm; Wt 72.6 kg
[~2021-04-03 21:47] MED LIST changes: -APIX5TAB PO; +ATOR40TA70 PO; +CARV3.1242 PO; -COR12 PO; +COR6 PO; +FAMO20TA8 PO; +FERR325T23 PO; +FURO40TA5 PO; -LIP40 MT; -OMEP20TA2 MT; +POTA20TA82 MT; +SPIR25TA PO
[2021-04-04] VITALS (86 sets, daily range): BP systolic 43–134; BP diastolic 16–96
[2021-04-04] MEDS ORDERED: FUROSEMIDE 40MG/4ML VIAL IVP ONE
[2021-04-04] MEDS ORDERED: MORPHINE SULFATE 4 MG/ML CPJ (NOT FOR IM USE) IV ONE
[2021-04-04 00:07] LABS: CHLORIDE 106 mEq/L (98-107)
[2021-04-04 00:08] LABS: BASOPHILS % 1.2 % (0.0-2.0); EOSINOPHILS % 2.5 % (0.0-5.0); HEMATOCRIT. 37.6 % (42.0-52.0); HEMOGLOBIN. 12.9 g/dL (14.0-18.0); LYMPHOCYTES % 28.7 % (20.0-50.0); MEAN CORPUSCULAR HEMOGLOBIN 32.8 pg (28.0-32.0); MEAN CORPUSCULAR VOLUME 95.6 fL (80.0-94.0); MEAN PLATELET VOLUME 9.6 fl (7.4-10.4); MONOCYTES % 9.9 % (2.0-8.0); NEUTROPHILS % 57.7 % (40.0-76.0); PLATELET 171 x1000/uL (130-400); RED BLOOD CELL COUNT 3.93 mill/uL (4.7-6.1); RED CELL DISTRIBUTION WIDTH 16.7 % (11.6-14.6)
[2021-04-04] MEDS ORDERED: AMIODARONE HCL 900 MG in DEXT 5% WATER 482 ML IV STA (00:26)
[2021-04-04] MEDS ORDERED: AMIODARONE HCL 50MG/ML 3ML VIAL IV ONE (00:30)
[2021-04-04] MEDS ORDERED: AMIODARONE HCL 900 MG in DEXT 5% WATER 482 ML IV PRN (01:00)
[2021-04-04 03:24] LABS: BG BASE EXCESS -4.2 mmol/L (-2.0-2.0); BG DEOXYHEMOGLOBIN 1.7 % (0.0-5.0); BG FRACTION INSPIRED OXYGEN 36; BG HCO3 ACT 16.8 mmol/L (22.0-26.0); BG METHEMOGLOBIN 0.2 % (0.0-1.5); BG OXYGEN SATURATION 98.3 % (92.0-98.5); BG OXYHEMOGLOBIN 98.1 % (94.0-97.0); BG PH 7.501 (7.350-7.450); BG PO2 117.1 mmHg (75.0-100.0); BG SAMPLE SITE ALINE; BG TOTAL HEMOGLOBIN 13.7 g/dL (12.0-18.0); BG VENT MODE NASAL CANNULA
[2021-04-04] MEDS ORDERED: PHENYLEPHRINE 100 MG in DEXT 5% WATER 240 ML IV PRN (04:00)
[2021-04-04] MEDS ORDERED: ENOXAPARIN 80MG/0.8ML SYR SUBCUT SCH ×2 (04:00→18:00)
[2021-04-04] MEDS ORDERED: DILTIAZEM HCL 125 MG in DEXT 5% WATER 100 ML IV PRN (04:00)
[2021-04-04] MEDS: ONDANSETRON HCL 4MG/2ML INJ IV PRN (04:52)
[2021-04-04] MEDS: MORPHINE SULFATE 2 MG/ML CPJ (NOT FOR IM USE) IV PRN (06:24)
[2021-04-04 08:41] LABS: BG BASE EXCESS -7.2 mmol/L (-2.0-2.0); BG CARBOXYHEMOGLOBIN 0.3 % (0.5-1.5); BG DEOXYHEMOGLOBIN 0.4 % (0.0-5.0); BG FRACTION INSPIRED OXYGEN 50; BG HCO3 ACT 16.4 mmol/L (22.0-26.0); BG METHEMOGLOBIN 0.3 % (0.0-1.5); BG OXYGEN SATURATION 99.6 % (92.0-98.5); BG PCO2 28.6 mmHg (35.0-45.0); BG PH 7.377 (7.350-7.450); BG PO2 239.6 mmHg (75.0-100.0); BG SAMPLE SITE RIGHT BRACHIAL; BG TOTAL HEMOGLOBIN 14.5 g/dL (12.0-18.0); BG TOTAL RESPIRATORY RATE 32 b/min; BG VENT MODE MASK - BIPAP
[2021-04-04] MEDS ORDERED: LIDOCAINE HCL 1% 20ML VIAL (Pyxis) INJ ONE (08:54)
[2021-04-04] MEDS: MULTIVITAMINS,THER W-MINERALS TABLET PO SCH (09:00)
[2021-04-04] MEDS: THIAMINE HCL 100MG TABLET PO SCH (09:00)
[2021-04-04] MEDS ORDERED: VASOPRESSIN 20 UNIT in SODIUM CHLORIDE 0.9% 99 ML IV PRN (09:00)
[2021-04-04] MEDS ORDERED: SODIUM BICARBONATE 8.4% 1 MEQ/ML 50ML SYR IV SCH (09:00)
[2021-04-04] MEDS: FOLIC ACID 1MG TABLET PO SCH (09:00)
[2021-04-04 09:29] LABS: BASOPHILS % 0.3 % (0.0-2.0); EOSINOPHILS % 0.3 % (0.0-5.0); HEMATOCRIT. 41.1 % (42.0-52.0); LYMPHOCYTES % 7.5 % (20.0-50.0); MEAN CORPUSCULAR HEMOGLOBIN 32.6 pg (28.0-32.0); MEAN CORPUSCULAR VOLUME 97.9 fL (80.0-94.0); MEAN PLATELET VOLUME 9.5 fl (7.4-10.4); MONOCYTES % 11.7 % (2.0-8.0); NEUTROPHILS % 80.2 % (40.0-76.0); PLATELET 156 x1000/uL (130-400); RED CELL DISTRIBUTION WIDTH 16.7 % (11.6-14.6)
[2021-04-04 09:31] LABS: HEMOGLOBIN. 13.7 g/dL (14.0-18.0)
[2021-04-04] MEDS ORDERED: IOHEXOL-350 100 ML BOTTLE ONE (09:46)
[2021-04-04] MEDS: PHENYLEPHRINE 100 MG in DEXT 5% WATER 240 ML IV PRN ×2 (11:25→20:46)
[2021-04-04] MEDS ORDERED: DOBUTAMINE IV SCH (12:00)
[2021-04-04] MEDS ORDERED: WATER IV SCH (12:00)
[2021-04-04] MEDS ORDERED: DEXT 5% IV SCH (12:00)
[2021-04-04] MEDS: AMIODARONE HCL 200 MG TABLET PO SCH ×2 (12:00→21:00)
[2021-04-04] MEDS: DOBUTAMINE 500 MG in DEXT 5% WATER 210 ML IV SCH (12:27)
[2021-04-04] MEDS: PIPERACILLIN/TAZOBACTAM 3.375 G in DEXT 5% WATER 100 ML IV SCH ×2 (14:55→20:47)
[2021-04-04 14:57] LABS: INR 2.7; PROTHROMBIN TIME 27.2 sec (9.6-11.0)
[2021-04-04 15:09] LABS: D-DIMER > 35.20 mg/L FEU (<0.50)
[2021-04-05] VITALS (91 sets, daily range): BP systolic 55–125; BP diastolic 24–78
[2021-04-05] MEDS: PIPERACILLIN/TAZOBACTAM 3.375 G in DEXT 5% WATER 100 ML IV SCH ×5 (02:02→23:50)
[2021-04-05] MEDS: PHENYLEPHRINE 100 MG in DEXT 5% WATER 240 ML IV PRN ×2 (04:41→13:25)
[2021-04-05 05:40] LABS: BASOPHILS % 0.3 % (0.0-2.0); EOSINOPHILS % 0.6 % (0.0-5.0); HEMATOCRIT. 34.5 % (42.0-52.0); HEMOGLOBIN. 11.4 g/dL (14.0-18.0); MEAN CORPUSCULAR HEMOGLOBIN 32.5 pg (28.0-32.0); MEAN CORPUSCULAR VOLUME 98.6 fL (80.0-94.0); MEAN PLATELET VOLUME 10.5 fl (7.4-10.4); MONOCYTES % 13.5 % (2.0-8.0); NEUTROPHILS % 77.6 % (40.0-76.0); PLATELET 115 x1000/uL (130-400); RED CELL DISTRIBUTION WIDTH 16.6 % (11.6-14.6)
[2021-04-05 05:50] LABS: CHLORIDE 96 mEq/L (98-107)
[2021-04-05 06:26] LABS: INR 2.6; PROTHROMBIN TIME 26.3 sec (9.6-11.0)
[2021-04-05] MEDS: MORPHINE SULFATE 2 MG/ML CPJ (NOT FOR IM USE) IV PRN (06:45)
[2021-04-05] MEDS ORDERED: LIDOCAINE HCL/PF 1% 2ML VIAL ONE (08:08)
[2021-04-05 08:31] LABS: BG CARBOXYHEMOGLOBIN 0.3 % (0.5-1.5); BG FRACTION INSPIRED OXYGEN 21; BG HCO3 ACT 23.2 mmol/L (22.0-26.0); BG METHEMOGLOBIN 0.2 % (0.0-1.5); BG OXYHEMOGLOBIN 90.5 % (94.0-97.0); BG PCO2 33.2 mmHg (35.0-45.0); BG PH 7.462 (7.350-7.450); BG PO2 61.5 mmHg (75.0-100.0); BG SAMPLE SITE RIGHT RADIAL; BG TOTAL HEMOGLOBIN 12.2 g/dL (12.0-18.0); BG VENT MODE ROOM AIR
[2021-04-05] MEDS: AMIODARONE HCL 200 MG TABLET PO SCH ×2 (08:41→21:27)
[2021-04-05] MEDS: THIAMINE HCL 100MG TABLET PO SCH (08:41)
[2021-04-05] MEDS: FOLIC ACID 1MG TABLET PO SCH (08:41)
[2021-04-05] MEDS: MULTIVITAMINS,THER W-MINERALS TABLET PO SCH (08:41)
[2021-04-05] MEDS: HYDROCODONE/ACETAMINOPHEN 5/325MG TABLET PO PRN (11:28)
[2021-04-05 13:05] LABS: CLARITY URINE CLOUDY (CLEAR); COLOR URINE YELLOW (YELLOW); KETONES URINE NEGATIVE (NEGATIVE); LEUKOCYTE ESTERASE URINE NEGATIVE (NEGATIVE); NITRITE URINE NEGATIVE (NEGATIVE); OCCULT BLOOD URINE 1+ (NEGATIVE); PH URINE 5.5 (4.5-8.0); PROTEIN URINE 2+ (NEGATIVE); SPECIFIC GRAVITY URINE 1.016 (1.005-1.030); UROBILINOGEN URINE 0.2 E.U./dL (0.2-1.0)
[2021-04-05] MEDS: DIGOXIN 125MCG TABLET PO SCH (17:41)
[2021-04-05] MEDS: ONDANSETRON HCL 4MG/2ML INJ IV PRN (20:39)
[2021-04-05] MEDS ORDERED: ACETAMINOPHEN 325MG TABLET PO PRN (22:45)
[2021-04-06] VITALS (61 sets, daily range): BP systolic 76–146; BP diastolic 27–107
[2021-04-06 05:01] LABS: BASOPHILS % 0.5 % (0.0-2.0); EOSINOPHILS % 2.6 % (0.0-5.0); HEMATOCRIT. 33.9 % (42.0-52.0); HEMOGLOBIN. 11.4 g/dL (14.0-18.0); LYMPHOCYTES % 12.1 % (20.0-50.0); MEAN CORPUSCULAR HEMOGLOBIN 32.7 pg (28.0-32.0); MEAN CORPUSCULAR VOLUME 97.4 fL (80.0-94.0); MONOCYTES % 8.6 % (2.0-8.0); NEUTROPHILS % 76.2 % (40.0-76.0); PLATELET 99 x1000/uL (130-400); RED BLOOD CELL COUNT 3.48 mill/uL (4.7-6.1); RED CELL DISTRIBUTION WIDTH 16.5 % (11.6-14.6)
[2021-04-06] MEDS: DOBUTAMINE 500 MG in DEXT 5% WATER 210 ML IV SCH (05:27)
[2021-04-06] MEDS: PIPERACILLIN/TAZOBACTAM 3.375 G in DEXT 5% WATER 100 ML IV SCH ×3 (05:56→17:11)
[2021-04-06 07:36] LABS: CLARITY URINE CLEAR (CLEAR); COLOR URINE YELLOW (YELLOW); KETONES URINE NEGATIVE (NEGATIVE); LEUKOCYTE ESTERASE URINE NEGATIVE (NEGATIVE); NITRITE URINE NEGATIVE (NEGATIVE); OCCULT BLOOD URINE NEGATIVE (NEGATIVE); PROTEIN URINE 1+ (NEGATIVE); SPECIFIC GRAVITY URINE 1.011 (1.005-1.030)
[2021-04-06] MEDS ORDERED: POTASSIUM CHLORIDE 20MEQ TABLET SR PO SCH (08:15)
[2021-04-06] MEDS: MULTIVITAMINS,THER W-MINERALS TABLET PO SCH (09:07)
[2021-04-06] MEDS: THIAMINE HCL 100MG TABLET PO SCH (09:07)
[2021-04-06] MEDS: FOLIC ACID 1MG TABLET PO SCH (09:07)
[2021-04-06] MEDS: AMIODARONE HCL 200 MG TABLET PO SCH (09:07)
[2021-04-06] MEDS: HYDROCODONE/ACETAMINOPHEN 5/325MG TABLET PO PRN (13:21)
[2021-04-06] MEDS: DIGOXIN 125MCG TABLET PO SCH (17:11)
[2021-04-07 00:18] VITALS: BP 97/51
[2021-04-07] MEDS: PIPERACILLIN/TAZOBACTAM 3.375 G in DEXT 5% WATER 100 ML IV SCH ×2 (00:29→06:30)
[2021-04-07] MEDS: HYDROCODONE/ACETAMINOPHEN 5/325MG TABLET PO PRN (00:50)
[2021-04-07 02:18] VITALS: BP 100/63
[2021-04-07 04:05] VITALS: BP 114/65
[2021-04-07 06:18] VITALS: BP 107/67
[2021-04-07 06:29] LABS: INR 1.9; PROTHROMBIN TIME 19.8 sec (9.6-11.0)
[2021-04-07 06:30] LABS: BASOPHILS % 0.7 % (0.0-2.0); EOSINOPHILS % 3.8 % (0.0-5.0); HEMATOCRIT. 37.7 % (42.0-52.0); HEMOGLOBIN. 12.8 g/dL (14.0-18.0); LYMPHOCYTES % 16.5 % (20.0-50.0); MEAN CORPUSCULAR HEMOGLOBIN 33.1 pg (28.0-32.0); MEAN CORPUSCULAR VOLUME 97.2 fL (80.0-94.0); MEAN PLATELET VOLUME 9.5 fl (7.4-10.4); MONOCYTES % 11.7 % (2.0-8.0); NEUTROPHILS % 67.3 % (40.0-76.0); PLATELET 112 x1000/uL (130-400); RED BLOOD CELL COUNT 3.88 mill/uL (4.7-6.1); RED CELL DISTRIBUTION WIDTH 16.5 % (11.6-14.6)
[2021-04-07 08:00] VITALS: BP 101/67
[2021-04-07] MEDS: FOLIC ACID 1MG TABLET PO SCH (08:49)
[2021-04-07] MEDS: THIAMINE HCL 100MG TABLET PO SCH (08:49)
[2021-04-07] MEDS: MULTIVITAMINS,THER W-MINERALS TABLET PO SCH (08:49)
[2021-04-07 10:00] VITALS: BP 107/67
[2021-04-07] MEDS ORDERED: LEVO500T89 MT (11:10)
== END 2021-04-07 12:24 | disposition left against medical advice (07) | DRG 133 ==
LOC: ER 21:47 → ENRESERV 04-04 02:04 → MICUSO 04-04 02:30 → 3WST 04-06 18:15
PROVIDERS: ADMIT Internal Medicine; ATTEND Internal Medicine
PROC: 02HV33Z Insertion of Infusion Device into Superior Vena Cava, Percutaneous Approach (ICD-10-PCS; principal; 2021-04-04)
PROC: B548ZZA Ultrasonography of Superior Vena Cava, Guidance (ICD-10-PCS; 2021-04-04)
PROC: 5A09357 Assistance with Respiratory Ventilation, Less than 24 Consecutive Hours, Continuous Positive Airway Pressure (ICD-10-PCS; 2021-04-04)
DX: J96.00 Acute respiratory failure, unspecified whether with hypoxia or hypercapnia (principal); K72.00 Acute and subacute hepatic failure without coma; R57.0 Cardiogenic shock; I50.23 Acute on chronic systolic (congestive) heart failure; E87.4 Mixed disorder of acid-base balance; D68.9 Coagulation defect, unspecified; J18.9 Pneumonia, unspecified organism; I27.29 Other secondary pulmonary hypertension; I11.0 Hypertensive heart disease with heart failure; N17.9 Acute kidney failure, unspecified; D64.9 Anemia, unspecified; D69.6 Thrombocytopenia, unspecified; E78.5 Hyperlipidemia, unspecified; I25.10 Atherosclerotic heart disease of native coronary artery without angina pectoris; I47.1 Supraventricular tachycardia; I48.91 Unspecified atrial fibrillation; I36.1 Nonrheumatic tricuspid (valve) insufficiency; F41.9 Anxiety disorder, unspecified; Z53.21 Procedure and treatment not carried out due to patient leaving prior to being seen by health care provider; Z79.899 Other long term (current) drug therapy; Z82.49 Family history of ischemic heart disease and other diseases of the circulatory system; F10.10 Alcohol abuse, uncomplicated; I42.9 Cardiomyopathy, unspecified
CPT/HCPCS: 36415; 36600; 71045; 71275; 74174; 76700; 76937; 80048; 80053; 80076; 81003; 82375; 82805; 83880; 84484; 85025; 85379; 93005; 93970; 94660; 99291; C1725; J0282; J1250; J1650; J1940; J2270; J2370; J2405; J2543; J3490; J7040; J7050; J7060; Q9967